=== PATIENT | female | born 1980 | race Caucasian/White ===

== ENCOUNTER 2020-01-19 14:47 | Outpatient (CLI) | payer OTHER, SELFPAY ==
--- NOTE | ~2020-01-19 | MM_ITS ---
EXAMINATION: MM screening barak BI w nasim HISTORY: Screening mammogram TECHNIQUE: Craniocaudal and mediolateral oblique 3-D tomosynthesis images were obtained and synthetic 2-D images were generated. CAD analysis was submitted and interpreted. COMPARISON: No prior mammogram is available for comparison at this institution. BREAST PARENCHYMAL COMPOSITION: There are scattered areas of fibroglandular density. FINDINGS: There is no evidence of suspicious mass, calcification, or architectural distortion to sugg est malignancy in either breast. There has been no suspicious interval change. IMPRESSION: 1. No mammographic evidence of malignancy. 2. Recommend routine screening mammography in one year. BI-RADS Category 1: Negative Reviewed, dictated and finalized at location A. UI DEVELOPER
== END 2020-01-19 14:48 | disposition home or self-care (01) ==
LOC: CHSIMG 14:50
PROVIDERS: PCP Nurse Practitioner Family; Visit Provider Nurse Practitioner Family
DX: Z12.31 Encounter for screening mammogram for malignant neoplasm of breast (principal)
CPT/HCPCS: 77063; 77067

== ENCOUNTER 2021-09-15 06:33 | Emergency (ER) | payer OTHER, SELFPAY ==
[2021-09-15 07:01] VITALS: BP 122/77; PULSE 93; RESP 18; TEMP 36.6; O2SAT 98
--- NOTE | 2021-09-15 07:11 | ED.EYEPROB ---
HPI - Eye Problem General Chief complaint: Eye Problems Stated complaint: eye infection Time Seen by Provider: 09/15/21 06:48 History of Present Illness HPI Narrative: 41-year-old female presents emergency room secondary irritation to both of her eyes for the last couple days. They are red and matted shut in the morning. She states she has had eye infections before. She states that she is got a history of having staph infection to her skin and she is having a flareup of those at this time. She thinks the 2 are associated. In the past she has been on antibiotics by mouth as well as to the eye and it clears up. Patient is also has not seen her regular physician in quite some time as she just relocated back to the area. She is possibly on Crestor 10 mg a day is requesting a refill for that as well. Related Data Allergies Allergy/AdvReac Type Severity Reaction Status Date / Time No Known Allergies Allergy Verified 09/15/21 07:08 Review of Systems Review of Systems: CONSTITUTIONAL: Denies fever, chills, or sweats. EYES: Denies visual changes. Has redness and drainage from both of her eyes ENT: Denies rhinorrhea, congestion, sore throat, or otalgia. CARDIOVASCULAR: Denies chest pain, palpitations, or edema. RESPIRATORY: Denies cough or dyspnea. GASTROINTESTINAL: Denies abdominal pain, nausea, vomiting, or diarrhea. GENITOURINARY: Denies dysuria or hematuria. SKIN: Diffuse lesions to both upper extremities consistent with staph infection MUSCULOSKELETAL: Denies back pain, joint pain, or myalgia. NEUROLOGIC: Denies headache, numbness, or weakness. PSYCHIATRIC: Denies anxiety or depression. PMFSH Past Medical History Medical History Hepatitis C Hyperlipidemia Overweight Surgical History Surgical History H/O knee surgery Social History Social History Smoking status: Never smoker Tobacco type: cigarettes Alcohol intake: never Substance use: former Substance use type: heroin Exam Narrative: APPEARANCE: Well appearing, no pain or distress, well-nourished. Head normocephalic and atraumatic. EYES: PERRLA/EOMI, both eyes are injected left greater than right with some discharge noted NOSE: Normal with no drainage EARS:TMS clear Anam Tanner, with good light reflex. THROAT: Pharynx clear, no exudate. NECK: Supple. No adenopathy, no masses. RESPIRATORY: Airway patent, respirations nonlabored. Clear to auscultation bilaterally, no rales, rhonchi, wheezing. CARDIOVASCULAR: Regular rate and rhythm without murmurs, rubs, or gallops. ABDOMINAL: Soft, nontender, nondistended, no hepatosplenomegaly Musculoskeletal: Moves all extremities. Strength/ROM intact, No edema, No calf tenderness. NEURO: Alert. Cranial nerves II through XII intact. Normal gait. Good coordination. Nonfocal examination. SKIN:: Warm, dry. Normal Color. Scattered lesions of the upper extremities appear to be consistent with a staph infection PSYCHIATRIC: Normal affect/mood, normal interaction Course Vital Signs Vital signs: Vital Signs Temperature 97.8 F 09/15/21 07:01 Pulse Rate 93 09/15/21 07:01 Respiratory Rate 18 09/15/21 07:01 Blood Pressure 122/77 09/15/21 07:01 Pulse Oximetry 98 09/15/21 07:01 Oxygen Delivery Room Air 09/15/21 07:01 Temperature 97.8 F 09/15/21 07:01 Pulse Rate 93 09/15/21 07:01 Respiratory Rate 18 09/15/21 07:01 Blood Pressure 122/77 09/15/21 07:01 Pulse Oximetry 98 09/15/21 07:01 Oxygen Delivery Room Air 09/15/21 07:01 MDM - Eye Problem MDM Narrative Medical decision making narrative: Presentation consistent with conjunctivitis as well as a skin infection. Patient was placed upon antibiotic ointment for the eyes as well as Keflex. Also given a refill for her Crestor 10 mg a day Discharge Plan Discharge Clinical
--- NOTE | 2021-09-15 07:14 | PC.NURSE ---
Report received from SHRUTHI Moreno to continue care.
== END 2021-09-15 07:21 | disposition home or self-care (01) ==
PROVIDERS: Emergency Provider Emergency Medicine
DX: H10.9 Unspecified conjunctivitis (principal); L03.114 Cellulitis of left upper limb; L03.113 Cellulitis of right upper limb; E78.5 Hyperlipidemia, unspecified; E66.3 Overweight; Z68.30 Body mass index [BMI] 30.0-30.9, adult; Z86.19 Personal history of other infectious and parasitic diseases
CPT/HCPCS: 99283

== ENCOUNTER 2021-11-01 23:23 | Emergency (ER) | payer OTHER, SELFPAY ==
[2021-11-01 23:28] VITALS: BP 117/84; PULSE 104; RESP 19; TEMP 36.7; O2SAT 100
--- NOTE | 2021-11-02 00:11 | ED.GENADULT ---
HPI - General Adult General Chief complaint: Skin/Abscess/Foreign Body Stated complaint: Possible Scabies Time Seen by Provider: 11/01/21 23:35 History of Present Illness HPI narrative: Patient 41-year-old female who presents the emergency department with chief complaint of possible scabies. Patient states that she stayed at a unknown hotel and started having some itching and has developed areas of what appear to be bites. Patient states that they are very itchy reported that they are not improved by anything or they worsened by anything. Related Data Allergies Allergy/AdvReac Type Severity Reaction Status Date / Time No Known Allergies Allergy Verified 11/01/21 23:32 Review of Systems Review of Systems: A 10 system review of systems was completed on the patient and is negative except for what is stated in the HPI. Nursing and ancillary documentation was reviewed. PMFSH Past Medical History Medical History Hepatitis C Hyperlipidemia Overweight Surgical History Surgical History H/O knee surgery Social History Social History Smoking status: Never smoker Tobacco type: cigarettes Alcohol intake: never Substance use: former Substance use type: heroin Exam Narrative: GENERAL: Well-appearing, well-nourished, and in no acute distress. HEAD: Normocephalic, atraumatic. EYES: PERRLA and EOMI. ENT: Nares clear, no rhinorrhea or epistaxis. Mucous membranes moist. NECK: Supple. CHEST: Clear to auscultation. No respiratory distress. HEART: Regular rate and rhythm. No murmur heard. Normal peripheral pulses. ABDOMEN: Soft, nontender, nondistended, normal active bowel sounds. EXTREMITIES: Normal range of motion. No edema. SKIN: Warm, dry, several small bite-like rash mckeon. NEURO: No focal deficits. Alert and oriented x3. PSYCH: Normal mood and affect. Course Course Emergency Course: Patient has multiple small what appear to be bites some of which have yet surrounding erythema. The patient will be treated as though she has scabies and will also be treated as though they have become secondarily infected. Vital Signs Vital signs: Vital Signs Temperature 36.7 C 11/01/21 23:28 Pulse Rate 104 H 11/01/21 23:28 Respiratory Rate 19 11/01/21 23:28 Blood Pressure 117/84 11/01/21 23:28 Pulse Oximetry 100 11/01/21 23:28 Oxygen Delivery Room Air 11/01/21 23:28 Temperature 36.7 C 11/01/21 23:28 Pulse Rate 104 H 11/01/21 23:28 Respiratory Rate 19 11/01/21 23:28 Blood Pressure 117/84 11/01/21 23:28 Pulse Oximetry 100 11/01/21 23:28 Oxygen Delivery Room Air 11/01/21 23:28 Medical Decision Making Vital Signs Vital Signs: Vital Signs Temperature 36.7 C 11/01/21 23:28 Pulse Rate 104 H 11/01/21 23:28 Respiratory Rate 19 11/01/21 23:28 Blood Pressure 117/84 11/01/21 23:28 Pulse Oximetry 100 11/01/21 23:28 Oxygen Delivery Room Air 11/01/21 23:28 Temperature 36.7 C 11/01/21 23:28 Pulse Rate 104 H 11/01/21 23:28 Respiratory Rate 19 11/01/21 23:28 Blood Pressure 117/84 11/01/21 23:28 Pulse Oximetry 100 11/01/21 23:28 Oxygen Delivery Room Air 11/01/21 23:28 Discharge Plan Discharge Clinical Impression: Scabies, Cellulitis Patient Disposition: Home, Self-Care Condition: Stable Instructions: Antibiotic Form, Cellulitis (ED), Scabies (ED) Prescriptions: New permethrin [Elimite] 5 % cream 1 applic topical Q14D Qty: 60 0RF Rx Instructions: apply second treatment 14 days after first treatment if live lice remain sulfamethoxazole-trimethoprim [Bactrim DS] 800-160 mg tablet 1 tablet PO Q12H Qty: 14 0RF No Action rosuvastatin [Crestor] 10 mg tablet 10 mg PO DAILY Qty: 90 0RF Follow-up/Referrals: PHYSICIAN,
== END 2021-11-02 00:42 | disposition home or self-care (01) ==
PROVIDERS: Emergency Provider Emergency Medicine
DX: B86 Scabies (principal); L03.311 Cellulitis of abdominal wall; E78.5 Hyperlipidemia, unspecified; Z86.19 Personal history of other infectious and parasitic diseases; E66.3 Overweight
CPT/HCPCS: 99283

== ENCOUNTER 2021-11-04 01:10 | Emergency (ER) | payer OTHER, SELFPAY ==
[2021-11-04 01:13] VITALS: BP 137/87; PULSE 99; RESP 20; TEMP 36.1; O2SAT 100
--- NOTE | 2021-11-04 02:31 | ED.SKABFB ---
HPI - Skin/Abscess/Foreign Bdy General Chief complaint: Skin/Abscess/Foreign Body Stated complaint: Scabies getting worse Time Seen by Provider: 11/04/21 01:32 Source: patient Mode of arrival: ambulatory Limitations: no limitations History of Present Illness HPI narrative: This is a 41 year old female that presents to the ER for itchy rash noted over the last couple of days. Reports she was seen and treated for scabies. She was also started on an antibiotic for possibly secondary infection. Denies fever. Related Data Allergies Allergy/AdvReac Type Severity Reaction Status Date / Time No Known Allergies Allergy Verified 11/04/21 01:34 Review of Systems Review of Systems: CONSTITUTIONAL: Denies fever SKIN: Reports rash and itching. All systems reviewed & are unremarkable except as noted in HPI and below PMFSH Past Medical History Medical History Hepatitis C Hyperlipidemia Overweight Surgical History Surgical History H/O knee surgery Social History Social History Smoking status: Never smoker Tobacco type: cigarettes Alcohol intake: never Substance use: former Substance use type: heroin Exam Narrative: GENERAL: Well-appearing, well-nourished, and in no acute distress. HEAD: Normocephalic, atraumatic. EYES: EOMI. EXTREMITIES: Normal range of motion. No edema. Bilateral arms with scabbing noted. No edema or fluctuance of the lesions to suggest abscess SKIN: Warm, dry, no rash. NEURO: No focal deficits. Alert and oriented x3. PSYCH: Normal mood and affect Course Vital Signs Vital signs: Vital Signs Temperature 97.0 F L 11/04/21 01:13 Pulse Rate 99 11/04/21 01:13 Respiratory Rate 20 11/04/21 01:13 Blood Pressure 137/87 11/04/21 01:13 Pulse Oximetry 100 11/04/21 01:13 Oxygen Delivery Room Air 11/04/21 01:13 Temperature 97.0 F L 11/04/21 01:13 Pulse Rate 99 11/04/21 01:13 Respiratory Rate 20 11/04/21 01:13 Blood Pressure 137/87 11/04/21 01:13 Pulse Oximetry 100 11/04/21 01:13 Oxygen Delivery Room Air 11/04/21 01:13 MDM - Skin/Abscess/Foreign Bdy MDM Narrative Medical decision making narrative: Patient presents to the emergency department for an itchy rash. Has been treated for scabies. Also placed on an oral antibiotic for possible secondary infection. Patient instructed to finish her medications as prescribed. Also instructed on use of antihistamines for itching. She is to follow-up with primary care doctor. She was given warnings to return to the ER Critical Care Time Critical Care Time Critical Care Time: No Discharge Plan Discharge Clinical Impression: Rash and nonspecific skin eruption Patient Disposition: Home, Self-Care Condition: Stable Instructions: Antibiotic Form, Scabies (ED), Acute Rash (ED) Additional Instructions: Return to the emergency department if you experience fever, redness and swelling of your wounds, abnormal drainage from your wounds, or any other symptoms that are concerning to you Apply second round of treatment (Permethrin) in 14 days. Take a Pepcid and Claritin daily. Benadryl as needed for severe itching. Finish oral antibiotic as prescribed. Keep the areas clean and dry with mild soap and water and apply antibiotic ointment as needed Follow-up with your primary care doctor Prescriptions: No Action permethrin [Elimite] 5 % cream 1 applic topical Q14D Qty: 60 0RF Rx Instructions: apply second treatment 14 days after first treatment if live lice remain sulfamethoxazole-trimethoprim [Bactrim DS] 800-160 mg tablet 1 tablet PO Q12H Qty: 14 0RF rosuvastatin [Crestor] 10 mg tablet 10 mg PO DAILY Qty: 90 0RF Follow-up/Referrals: Kirill Carrasco MD [Physician] - 1 Week PHYSICIAN,[employer] REPRESENTATIVE [Pr
[2021-11-04 02:46] VITALS: BP 124/84; PULSE 98; RESP 12; TEMP 36.4; O2SAT 100
== END 2021-11-04 02:57 | disposition home or self-care (01) ==
PROVIDERS: Emergency Provider Emergency Medicine
DX: R21 Rash and other nonspecific skin eruption (principal); E78.5 Hyperlipidemia, unspecified; E66.3 Overweight; Z86.19 Personal history of other infectious and parasitic diseases
CPT/HCPCS: 99281

== ENCOUNTER 2021-11-23 20:25 | Emergency (ER) | payer OTHER, SELFPAY ==
[2021-11-23 20:32] VITALS: BP 151/95; PULSE 99; RESP 20; TEMP 37.2; O2SAT 97
--- NOTE | 2021-11-23 21:01 | ED.SKABFB ---
HPI - Skin/Abscess/Foreign Bdy General Chief complaint: Skin/Abscess/Foreign Body Stated complaint: SKIN PROBLEM Time Seen by Provider: 11/23/21 20:29 History of Present Illness HPI narrative: Patient is a 41-year-old female here for evaluation of a diffuse pruritic rash to her bilateral upper extremities most notable in the anterior webs of her fingers. She has been seen here twice at our facility and was given prescription for suspected scabies and overlying cellulitis. Patient states that she lost the antibiotic prescription upon onset and did not take it. She has been applying the permethrin cream but lost this for her second application. She states she has a history of staph infections and this feels similar. She has also been picking at the lesions and they have gotten worse since onset. No new medications, soaps or detergents. Rash is not painful. No fevers or chills. Related Data Allergies Allergy/AdvReac Type Severity Reaction Status Date / Time No Known Allergies Allergy Verified 11/23/21 20:34 Review of Systems Review of Systems: Gen: Denies fevers or chills Eyes: Denies eye pain or visual change ENT: Denies congestion Respiratory: Denies shortness of breath or cough CV: Denies chest pain or palpitations GI: Denies abdominal pain nausea, emesis or diarrhea : denies burning, urgency, frequency or hematuria Musculoskeletal: Denies back pain or muscle pain Neuro: Denies numbness, tingling, weakness or focal weakness Skin: Reports pruritic rash Except as documented, all other systems reviewed and negative PMFSH Past Medical History Medical History Hepatitis C Hyperlipidemia Overweight Surgical History Surgical History H/O knee surgery Social History Social History Smoking status: Never smoker Tobacco type: cigarettes Alcohol intake: never Substance use: former Substance use type: heroin Exam Narrative: APPEARANCE: Well appearing, no pain in distress, well-nourished. Head: Normocephalic and atraumatic. EYES: PERRLA/EOMI, conjunctivae clear NOSE: No nasal drainage EARS: External ear normal in appearance THROAT: Oropharynx is clear. Mucous membranes are moist. NECK: Supple. No adenopathy, no masses. RESPIRATORY: Airway patent, respirations nonlabored. Clear to auscultation bilaterally, no rales, rhonchi, wheezing. CARDIOVASCULAR: Regular rate and rhythm without murmurs, rubs, or gallops. ABDOMINAL: Normoactive bowel sounds. Soft, nontender, nondistended. No rebound tenderness or guarding. MUSCULOSKELETAL: Extremities are warm and well-perfused. Moves all extremities well. No edema. NEURO: Normal speech. No focal neurologic deficits. SKIN: Patient has scattered numerous scabs to upper extremities, several papules between the webs of her fingers in addition to linear burrows. PSYCHIATRIC: Normal affect/mood.. Course Vital Signs Vital signs: Vital Signs Temperature 99 F 11/23/21 20:32 Pulse Rate 99 11/23/21 20:32 Respiratory Rate 20 11/23/21 20:32 Blood Pressure 151/95 H 11/23/21 20:32 Pulse Oximetry 97 11/23/21 20:32 Temperature 99 F 11/23/21 20:32 Pulse Rate 99 11/23/21 20:32 Respiratory Rate 20 11/23/21 20:32 Blood Pressure 151/95 H 11/23/21 20:32 Pulse Oximetry 97 11/23/21 20:32 MDM - Skin/Abscess/Foreign Bdy MDM Narrative Medical decision making narrative: 41-year-old female here for evaluation of a rash to her bilateral upper extremities that is pruritic in nature. She was given a prescription for treatment of suspected scabies with overlying cellulitis, permethrin cream once but did not take antibiotics and lost the prescription for both. On exam she has evidence of surrounding cellulitis to the papules and evidence of excoriation. She will be treated with
== END 2021-11-23 21:08 | disposition home or self-care (01) ==
PROVIDERS: Emergency Provider Emergency Medicine
DX: R21 Rash and other nonspecific skin eruption (principal); L03.114 Cellulitis of left upper limb; L03.113 Cellulitis of right upper limb; E78.5 Hyperlipidemia, unspecified; E66.3 Overweight; Z68.34 Body mass index [BMI] 34.0-34.9, adult; Z86.19 Personal history of other infectious and parasitic diseases
CPT/HCPCS: 99283

== ENCOUNTER 2021-12-08 04:16 | Emergency (ER) | payer OTHER, SELFPAY ==
[2021-12-08 04:24] VITALS: BP 145/90; PULSE 123; RESP 22; TEMP 37; O2SAT 100
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
== END 2021-12-08 05:43 | disposition home or self-care (01) ==
PROVIDERS: Emergency Provider Emergency Medicine
DX: F42.4 Excoriation (skin-picking) disorder (principal); E78.5 Hyperlipidemia, unspecified; E66.3 Overweight; Z68.34 Body mass index [BMI] 34.0-34.9, adult; Z86.19 Personal history of other infectious and parasitic diseases
CPT/HCPCS: 99281

== ENCOUNTER 2022-09-24 15:46 | Emergency (ER) | payer OTHER, SELFPAY ==
[2022-09-24 15:55] VITALS: BP 151/109; PULSE 95; RESP 16; TEMP 37.1; O2SAT 98
--- NOTE | 2022-09-24 16:00 | ED.EYEPROB ---
HPI - Eye Problem General Chief complaint: Eye Problems Stated complaint: left eye irritation Time Seen by Provider: 09/24/22 16:00 Source: patient Mode of arrival: ambulatory Limitations: no limitations History of Present Illness HPI Narrative: Celeste is a 42-year-old female patient presenting to the clinic with complaints of left eye irritation. She reports she took out a contact from her left eye last night and developed irritation and watering. She is concerned that she may have scratched her eye. Is having blurry vision with watery eye with moderate pain Related Data Allergies Allergy/AdvReac Type Severity Reaction Status Date / Time No Known Allergies Allergy Verified 09/24/22 16:22 Review of Systems Review of Systems: Pertinent positives per HPI. Patient denies any fever, chills, rash, headache, dizziness, cough, runny nose, sore throat, shortness of breath, chest pain, palpitations, nausea, vomiting, diarrhea, constipation, abdominal pain, or any urinary issues. PMFSH Past Medical History Medical History Hepatitis C Hyperlipidemia Overweight Surgical History Surgical History H/O knee surgery Social History Social History Smoking status: Never smoker Tobacco type: cigarettes Alcohol intake: never Substance use: former Substance use type: heroin Living arrangements: alone Occupation/Education: occupation Comments At the time of my signature, I reviewed and agree with the nursing past medical, surgical, social, and family history. There is no relevant family history pertinent to the patient complaint. Exam Narrative: General: Well-developed, well nourished, in no apparent distress Head: Normocephalic, atraumatic Eyes: Pupils equally round and reactive to light bilaterally, EOM intact, right sclera and conjunctive clear, left sclera and conjunctiva injected with watery discharge, left lids mildly swollen, right lids normal, Wood's lamp exam performed and shows no sign of corneal abrasion or foreign body Ears: TMs intact and clear, ear canals clear, no drainage, grossly hearing normal. Nose: Nares patent, no discharge, no inflammation, no sinus tenderness. Mouth: Oropharynx without lesions or masses, good dentition, MMM. Neck: Supple, trachea midline, no enlargement of anterior or posterior cervical nodes, no thyroid masses or goiter palpable. Cardio: Regular rate and rhythm, s1 and s2 normal, no murmur appreciated. Resp: Clear to auscultation bilaterally anteriorly and posteriorly, no rhonchi, rales, wheezing or rubs Course Course Emergency Course: Portions of this record may have been created with voice recognition software. Level of Care: Express Care Visit Vital Signs Vital signs: Vital Signs Temperature 37.1 C 09/24/22 15:55 Pulse Rate 95 09/24/22 15:55 Respiratory Rate 16 09/24/22 15:55 Blood Pressure 151/109 H 09/24/22 15:55 Pulse Oximetry 98 09/24/22 15:55 Oxygen Delivery Room Air 09/24/22 15:55 Temperature 37.1 C 09/24/22 15:55 Pulse Rate 95 09/24/22 15:55 Respiratory Rate 16 09/24/22 15:55 Blood Pressure 151/109 H 09/24/22 15:55 Pulse Oximetry 98 09/24/22 15:55 Oxygen Delivery Room Air 09/24/22 15:55 Vital signs reviewed Procedures Other Procedure Procedure 1: Other Procedure: Wood's lamp exam performed in the clinic today. Risk and benefits were discussed and patient agrees to procedure. 2 drops of tetracaine topical anesthetic was instilled with good anesthesia. Fluorescein stain of the left eye was performed without uptake of dye. No epithelial defect was noted. NO FB, ulcer or dendritic lesions. Upper lid was everted and no FB or lesions were noted. No Patricia sign. Normal saline irrigation eye solution was performe
== END 2022-09-24 16:35 | disposition home or self-care (01) ==
PROVIDERS: Emergency Provider Nurse Practitioner Family; PCP Emergency Medicine
DX: H57.12 Ocular pain, left eye (principal); E78.5 Hyperlipidemia, unspecified
CPT/HCPCS: 99213; A9270; G0463

== ENCOUNTER 2023-09-07 03:15 | Emergency (ER) | payer OTHER, SELFPAY ==
[2023-09-07 03:19] VITALS: BP 117/100; PULSE 100; RESP 20; TEMP 36.8; O2SAT 98
--- NOTE | 2023-09-07 03:30 | ED.GENADULT ---
HPI - General Adult General Chief complaint: Skin/Abscess/Foreign Body Stated complaint: staph outbreak on my face Time Seen by Provider: 09/07/23 03:23 History of Present Illness HPI narrative: Patient is a 43-year-old female who presents emergency department with chief complaint of skin infection to face. The patient reports yesterday she started having breakout on her face reports that history of skin infections before in the past. The patient reports that it is irritated reports no shortness of breath denies angioedema Related Data Allergies Allergy/AdvReac Type Severity Reaction Status Date / Time No Known Allergies Allergy Verified 09/07/23 03:21 Review of Systems Review of Systems: A 10 system review of systems was completed on the patient and is negative except for what is stated in the HPI. Nursing and ancillary documentation was reviewed. PMFSH Past Medical History Medical History Hepatitis C Hyperlipidemia Overweight Surgical History Surgical History H/O knee surgery Social History Social History Smoking status: Never smoker Tobacco type: cigarettes Alcohol intake: never Substance use: former Substance use type: heroin Living arrangements: alone Occupation/Education: occupation Exam Narrative: GENERAL: Well-appearing, well-nourished, and in no acute distress. HEAD: Normocephalic, atraumatic. EYES: PERRLA and EOMI. ENT: Nares clear, no rhinorrhea or epistaxis. Mucous membranes moist. NECK: Supple. CHEST: Clear to auscultation. No respiratory distress. HEART: Regular rate and rhythm. No murmur heard. Normal peripheral pulses. ABDOMEN: Soft, nontender, nondistended, normal active bowel sounds. EXTREMITIES: Normal range of motion. No edema. SKIN: Warm, dry, areas of erythema present on the face no fluctuance no crepitance no necrotic tissue. NEURO: No focal deficits. Alert and oriented x3. PSYCH: Normal mood and affect. Course Vital Signs Vital signs: Vital Signs Temperature 36.8 C 09/07/23 03:19 Pulse Rate 100 09/07/23 03:19 Respiratory Rate 20 09/07/23 03:19 Blood Pressure 117/100 H 09/07/23 03:19 Pulse Oximetry 98 09/07/23 03:19 Oxygen Delivery Room Air 09/07/23 03:19 Temperature 36.8 C 09/07/23 03:19 Pulse Rate 100 09/07/23 03:19 Respiratory Rate 20 09/07/23 03:19 Blood Pressure 117/100 H 09/07/23 03:19 Pulse Oximetry 98 09/07/23 03:19 Oxygen Delivery Room Air 09/07/23 03:19 Medical Decision Making MDM Narrative Medical decision making narrative: Differential diagnosis includes cellulitis, localized skin infection Patient was started on doxycycline discharged home Vital Signs Vital Signs: Vital Signs Temperature 36.8 C 09/07/23 03:19 Pulse Rate 100 09/07/23 03:19 Respiratory Rate 20 09/07/23 03:19 Blood Pressure 117/100 H 09/07/23 03:19 Pulse Oximetry 98 09/07/23 03:19 Oxygen Delivery Room Air 09/07/23 03:19 Temperature 36.8 C 09/07/23 03:19 Pulse Rate 100 09/07/23 03:19 Respiratory Rate 20 09/07/23 03:19 Blood Pressure 117/100 H 09/07/23 03:19 Pulse Oximetry 98 09/07/23 03:19 Oxygen Delivery Room Air 09/07/23 03:19 Discharge Plan Discharge Clinical Impression: Cellulitis Patient Disposition: Home, Self-Care Condition: Stable Instructions: Antibiotic Form, Cellulitis (ED) Prescriptions: New doxycycline hyclate 100 mg tablet 100 mg PO BID Qty: 14 0RF No Action tobramycin-dexamethasone [TobraDex] 0.3-0.1 % drops,suspension 1 drp LEFT EYE QID 7 Days Qty: 10 0RF rosuvastatin [Crestor] 10 mg tablet 10 mg PO DAILY Qty: 90 0RF Follow-up/Referrals: Eduardo Quigley MD [Primary Care Provider] - Time of Disposition: 03:34
[2023-09-07] MEDS: DOXYCYCLINE HYCLATE 100 MG TABLET PO (03:39)
== END 2023-09-07 03:41 | disposition home or self-care (01) ==
LOC: ANHED 03:36
PROVIDERS: Emergency Provider Emergency Medicine
DX: L03.211 Cellulitis of face (principal); E78.5 Hyperlipidemia, unspecified; E66.3 Overweight; Z68.31 Body mass index [BMI] 31.0-31.9, adult; Z86.19 Personal history of other infectious and parasitic diseases
CPT/HCPCS: 99283; A9270

== ENCOUNTER 2023-09-27 22:53 | Emergency (ER) | payer OTHER, SELFPAY ==
[2023-09-27 22:59] VITALS: BP 154/100; PULSE 102; RESP 18; TEMP 36.8; O2SAT 97
--- NOTE | 2023-09-28 01:49 | ED.GENADULT ---
HPI - General Adult General Chief complaint: Unspecified Stated complaint: rash to face/back pain Time Seen by Provider: 09/28/23 00:58 History of Present Illness HPI narrative: This is a 43-year-old female with history of polysubstance use disorder and skin picking presenting for a diffuse rash. She thinks that she has scabies. She is requesting oral pills since taking the cream that did not help. Patient has been seen in our emergency department for this in the past. No other complaints. Related Data Allergies Allergy/AdvReac Type Severity Reaction Status Date / Time No Known Allergies Allergy Verified 09/07/23 03:21 [facility] Past Medical History Medical History Hepatitis C Hyperlipidemia Overweight Surgical History Surgical History H/O knee surgery Social History Social History Smoking status: Never smoker Tobacco type: cigarettes Alcohol intake: never Substance use: former Substance use type: heroin Living arrangements: alone Occupation/Education: occupation Exam Narrative: APPEARANCE: Patient speaks quickly, she cannot sit still in her chair, she is picking at her skin while I am interviewing her Head: atraumatic. EYES: EOMI, NOSE: Atraumatic NECK: Trachea midline RESPIRATORY: No increased rate of breathing CARDIOVASCULAR: RRR, ABDOMINAL: Non-distended MUSCULOSKELETAl: No obvious deformities NEURO: Alert. Moving 4/4 extremities SKIN:: Multiple areas in different stages of healing from skin picking on her arms and face PSYCHIATRIC: Normal affect Course Vital Signs Vital signs: Vital Signs Temperature 98.3 F 09/27/23 22:59 Pulse Rate 102 H 09/27/23 22:59 Respiratory Rate 18 09/27/23 22:59 Blood Pressure 154/100 H 09/27/23 22:59 Pulse Oximetry 97 09/27/23 22:59 Oxygen Delivery Room Air 09/27/23 22:59 Temperature 98.3 F 09/27/23 22:59 Pulse Rate 102 H 09/27/23 22:59 Respiratory Rate 18 09/27/23 22:59 Blood Pressure 154/100 H 09/27/23 22:59 Pulse Oximetry 97 09/27/23 22:59 Oxygen Delivery Room Air 09/27/23 22:59 Medical Decision Making MDM Narrative Medical decision making narrative: -Course: 43-year-old female presenting ED convinced that she has scabies. I think this far more likely to be a result of drug use. Patient does not think it is related to amphetamines. Patient will be provided prescriptions for permethrin cream and ivermectin. Discharged. Encouraged to stop using drugs. -DDX includes but is not limited to: Skin picking related to drug use, scabies, cellulitis -Co-morbidities complicating care: Drug use -External Chart Review: Review of ER visits for identical presentation. -Shared decision making / Disposition: Discharged -RX ivermectin, per mother in Vital Signs Vital Signs: Vital Signs Temperature 98.3 F 09/27/23 22:59 Pulse Rate 102 H 09/27/23 22:59 Respiratory Rate 18 09/27/23 22:59 Blood Pressure 154/100 H 09/27/23 22:59 Pulse Oximetry 97 09/27/23 22:59 Oxygen Delivery Room Air 09/27/23 22:59 Temperature 98.3 F 09/27/23 22:59 Pulse Rate 102 H 09/27/23 22:59 Respiratory Rate 18 09/27/23 22:59 Blood Pressure 154/100 H 09/27/23 22:59 Pulse Oximetry 97 09/27/23 22:59 Oxygen Delivery Room Air 09/27/23 22:59 Discharge Plan Discharge Clinical Impression: Rash, Drug abuse Patient Disposition: Home, Self-Care Condition: Stable Instructions: Antibiotic Form, Scabies (ED) Additional Instructions: You can attempt to use permethrin and ivermectin to treat your rash. I would refrain from using drugs in the future as this looks like skin picking. Please follow-up with primary care physician. Please return if you develop signs of infection Prescriptions: New permethrin 5 % crea
== END 2023-09-28 02:10 | disposition home or self-care (01) ==
PROVIDERS: Emergency Provider Emergency Medicine
DX: R21 Rash and other nonspecific skin eruption (principal); F19.10 Other psychoactive substance abuse, uncomplicated; E78.5 Hyperlipidemia, unspecified; Z86.19 Personal history of other infectious and parasitic diseases; E66.3 Overweight; Z68.32 Body mass index [BMI] 32.0-32.9, adult
CPT/HCPCS: 99283

== ENCOUNTER 2024-08-09 03:48 | Emergency (ER) | payer OTHER, SELFPAY ==
--- OUTSIDE RECORDS SUMMARY | 2024-08-09 03:51 | XMS_ITS | Encounter Summary ---
Author Organization [facility] Address [address] [place] [address] Phone Care Team Providers Care Optical Goods Worker Name Role Phone Oliver Roxann Shi APRN, F[employer]ERGL[employer] PIPE COVERING SUPERVISOR Primary Care Provider Vicky Jacobs APRN, [employer]ER[employer] PIPE COVERING SUPERVISOR Unavailable Reason for Visit * Reason Comments Medication Refill Encounter Details Date Type Department Care Team (Late st Contact Info) Description 05/11/2024 Refill [facility] - Gastroenterology - [place] [address] [place] [phone] Vicky Jacobs APRN, F[employer]ERGL[employer] PIPE COVERING SUPERVISOR [address] [place] [address] Medication Refill Social History Tobacco Use Types Packs/Day Years Used Date Smoking Tobacco: Former Cigarettes Alcohol Use Standard Drinks/Week Comments Not Currently 0 (1 standard drink = 0.6 oz pur e alcohol) Comments No Sex and Gender Information Value Date Recorded Sex Assigned at Not on file Legal Sex Female 7:44 PM CDT Gender Identity Not on file Sexual Orientation Not on file documented as of this encounter Miscellaneous Notes * Telephone Encounter - Salome Hull RN - 05/12/2024 8:54 AM TAPE MAKING MACHINE OPERATOR Mavyret order placed on 01/29/2024. Per chart review, telephone encounter for 03/05/2024, patient started Mavyret on 03/26/2024. Per chart review, Mavyret was dispensed on 03/23/2024 and 04/26/2024 by [facility]. Spoke with patient, she has a few boxes left. She has had the flu and has not been able to get in to do the HFP. Advised patient to call to make an appt when she is finished with treatment. She reported she is feeling better and will get lab done soon. Mavyret order pended, ok to refuse med refill?? MAKING MACHINE OPERATOR documented in this encounter Plan of Treatment Not on file documented as of this encounter Visit Diagnoses Diagnosis Hep C w/o coma, chronic (HCC) Chronic hepatitis C without mention of hepatic coma documented in this encounter Care Teams [employer] Goods Worker Relationship Specialty Start Date End Date Roxann Boyd APRN, F[employer]ER[employer] PIPE COVERING SUPERVISOR [address] [place] [address] PCP - General Advanced Practice Nurse 12/15/23 Vicky Jacobs APRN, F[employer]ERGL[employer] PIPE COVERING SUPERVISOR [address] [place] [address] Nurse Practitioner Advanced Practice Nurse 01/27/24 documented as of this encounter
--- OUTSIDE RECORDS SUMMARY | 2024-08-09 03:51 | XMS_ITS | Data Portability ---
Author Organization [facility] Address [address] [place] [address] Care Team Providers Care Vascular Specialists Name Role Phone VANGIE, ROXANN Primary Care Provider Assessment Encounter Date Assessment Date Assessment LastModified by Organization Details LastModified Time 12/02/2023 12/02/2023 Ms. Gregory is a 43-year-old female presenting to [facility] care. She last saw a primary care provider in 2019 after being released from nursing home, where she was incarcerated for five years. 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 She has a history of hepatitis C diagnosed in 2013 but has not received any treatment for it. The patient also mentions having high cholesterol and bilateral carpal tunnel syndrome affecting both hands. Additionally, she has a history of anxiety and depression and currently vapes. Not available 12/09/2023 11:56:33 01/01/2024 01/01/2024 Ms. Gregory presents for a follow-up appointment, reporting generalized swelling since starting atorvastatin. She describes feeling swollen all over, with no specific areas of increased discomfort. She denies any recent changes in diet, activity, or medication, except for the addition of atorvastatin. No other symptoms such as shortness of breath, chest pain, or rash are reported. Not available 01/01/2024 15:06:25 07/12/2024 07/12/2024 Ms. Gregory presents for ER follow-up after visiting [facility] on 07/10/24 for two days of vomiting. Symptoms have resolved, and patient feels much better today. Not available 07/13/2024 08:36:13 Plan of Treatment Reminders Order Date Submit Date Provider Last Modified By Organization Details Last Modified Time Details Appointments ANY 15 2024 01:45P M ROXANN VENCES, [employer] Not available Not available Not available Lab cytol ogy repor t, thin prep, smear or scrap ing, cervi clifford or vagin al 2024 025 MIC[facility], [address], [address], [place], [address], 06/26/2024 06:49:02 influ honey virus A + B + SARS- CoV-2 (COVI D19) Ag panel , rapid IA, upper respi rator y speci men 2024 025 MICHELLE In-Office Order, Internal Use Only DO Not Attach Compendium DO Not Attach Compendium, Do Not Delete/merge, [id number] 05/11/2024 16:51:46 rapid strep group A, throa t 2024 025 MICHELLE In-Office Order, Internal Use Only DO Not Attach Compendium DO Not Attach Compendium, Do Not Delete/merge, [id number] 05/11/2024 16:52:05 HbA1c (hemo globi n A1c), blood 2023 024 [facility], [address], [address], [place], [address], 12/17/2023 08:28:31 lipid panel , serum 2023 024 [facility], [address], [address], [place], [address], 12/17/2023 03:08:35 CMP, serum or plasm a 2023 024 [facility], [address], [address], [place], [address], 12/17/2023 03:08:37 CBC w/ auto diff 2023 024 [facility], [address], [place], [address], 12/17/2023 03:08:38 vitam in D, 25-hy droxy , total , serum 2023 024 [facility], [address] [facility] [address], [address], [place], [address], 12/17/2023 08:28:[address] refer ral 2023 024 [facility] [place], [address] [facility], [address], [place], [address], 01/22/2024 09:05:48 Procedures None recor ded. Surgeries None recor ded. Imaging elect romyo gram + nerve condu ction study 2023 024 [email or web address] Scheduling, [address] [facility] , [place], [address], 05/04/2024 15:16:51 Medication Orders valac yclov ir 1 gram table t 2024 025 [id number], [address] [place] [address], [id number], 05/07/2024 12:15:04 Lasix 20 mg table t 2023 024 [facility] #[id number], [address] [place] [address], [id number], 02/10/2024 10:34:02 potas sium chlor maria teresa ER 10 mEq table t,ext ended relea se 2023 024 [facility] [place] [facility] #[id number], [address] [place] [address], [id number], 02/10/2024 10:34:01 ezeti mibe 10 mg table t 2023 [facility] [place] [facility] #[id number], [address] [facility], [place], [place], [id number], 01/01/2024 14:43:44 dulox etine 20 mg capsu le,de layed relea se 2023 [id number], [address] [facility], [place], [place], [phone], 12/02/2023 14:36:53 Patient TargetsNo targets recorded. Patient Instructions Encounter Date Encounter Id Patient Instructions Last Modified By Organization Details Last Modified Time 12/02/2023 [id number] A healthy lifestyle: care instructions Not available 12/02/2023 14:47:58 - Always present to ER or Urgent Care with any progression of/alarming symptoms, significant changes in symptoms or any concerning or urgent matters Not available 12/02/2023 14:18:00 01/01/2024 [id number] - Always present to ER or Urgent Care with any progression of/alarming symptoms, significant changes in symptoms or any concerning or urgent matters Not available 01/01/2024 15:04:08 05/07/2024 [id number] Plan of care has been discussed with patient including expected therapeutic benefits and potential side effects of prescribed medication and treatments. Patient verbalizes understanding and is in agreement with the plan of care. Patient was instructed to keep all scheduled appointments and contact the clinic for any additional problems. Not available 05/07/2024 14:35:49 06/21/2024 [id number] A healthy lifestyle: care instructions [email or web address] Not available 06/21/2024 13:01:21 You had your pap smear completed today. You should have a well woman exam each year. If your pap smear comes back normal and does not show any HPV ( human papilloma virus), you will not need another pap smear for 5 years. Do NOT douche as it disturbs the natural balance of bacteria in the vagina and can cause infection. Avoid scented soaps or lotions. Use a basic unscented soap for only the outer skin around your vagina. Wear cotton underwear, avoid thongs, avoid spandex, leggings and wear panty liners daily. You can try probiotics. Use a condom with EVERY sexual encounter to minimize your risk for sexually transmitted infection and unplanned . [email or web address] Not available 06/21/2024 13:01:20 07/12/2024 [id number] - Always present to ER or Urgent Care with any progression of/alarming symptoms, significant changes in symptoms or any concerning or urgent matters Not available 07/12/2024 15:06:32 Reason for Referral Impregnation Operator Referral for Ch ronic hepatitis C Referring Physician: Roxann Vences, Family Medicine, Encounter Date: 12/02/2023 Results Created Date Observation Date Name Description Value Unit Range Abnormal Flag Note LastModifiedBy Organization Detail LastModifiedTime 12/16/1912/17/2023 LIPID PANEL cholesterol, total 305 mg/dL 100-19 9 above high normal Not Available [facility] Department [address] [place], [address], 12/17/2023 03:08:35 12/16/1912/17/2023 LIPID PANEL triglyceride s 161 mg/dL 0-149 above high normal Not Available [facility] Department [address] [place], [address], 12/17/2023 03:08:35 12/16/1912/17/2023 LIPID PANEL HDL cholesterol 59 mg/dL 40-999 Not Available [facility] Department [address] [place], [address], 12/17/2023 03:08:35 12/16/1912/17/2023 LIPID PANEL VLDL cholesterol clifford 32 mg/dL 5-40 Not Available [facility] Department [address] [place], [address], 12/17/2023 03:08:35 12/16/1912/17/2023 LIPID PANEL LDL chol calc (nih) 235 mg/dL 0-99 above high normal Not Available [facility] Department [address] [place] [address], [address], 12/17/2023 03:08:35 12/16/19 24 12/17/2023 COMP. METAB OLIC PANEL (14) glucose 67 mg/dL 70-99 below low normal Not Available [facility] Department [address] [place] [address], [address], 12/17/2023 03:08:36 12/16/19 24 12/17/2023 COMP. METAB OLIC PANEL (14) BUN 12 mg/dL 6-24 Not Available [facility] Department [address] [place] [address], [address], 12/17/2023 03:08:36 12/16/19 24 12/17/2023 COMP. METAB OLIC PANEL (14) creatinine 0.72 mg/dL 0.76-1 .27 below low normal Not Available [facility] Department [address] [place] [address], [address], 12/17/2023 03:08:36 12/16/1912/17/2023 COMP. METAB OLIC PANEL (14) eGFR 106 >=60 Units for eGFR value s are mL/mi n/1.7 3 The eGFR Calcu latio n has not been valid ated for patie nts under the age of 18. If test resul ts are displ ayed for a patie nt under the age of 18, disre itz that value . Not Available [facility] Department [address] [place], [address], 12/17/2023 03:08:36 12/16/19 24 12/17/2023 COMP. METAB OLIC PANEL (14) BUN/creatini ne ratio 17 9-23 Not Available [facility] Department [address] [place] [address], [address], 12/17/2023 03:08:36 12/16/19 24 12/17/2023 COMP. METAB OLIC PANEL (14) sodium 139 mmol/ L 134-14 4 Not Available [facility] Department [address] [place], [address], 12/17/2023 03:08:36 12/16/1912/17/2023 COMP. METAB OLIC PANEL (14) potassium 4.4 mmol/ L 3.5-5. 2 Not Available [facility] Department [address] [place], [address], 12/17/2023 03:08:36 12/16/19 24 12/17/2023 COMP. METAB OLIC PANEL (14) chloride 99 mmol/ L 96-106 Not Available [facility] Department [address] [place] [address], [address], 12/17/2023 03:08:36 12/16/19 24 12/17/2023 COMP. METAB OLIC PANEL (14) carbon dioxide, total 29 mmol/ L 20-29 Not Available [facility] Department [address] [place] [address], [address], 12/17/2023 03:08:36 12/16/1912/17/2023 COMP. METAB OLIC PANEL (14) calcium 9.3 mg/dL 8.7-10 .2 Not Available [facility] Department [address] [place] [address], [address], 12/17/2023 03:08:36 12/16/1912/17/2023 COMP. METAB OLIC PANEL (14) protein, total 7.6 g/dL 6.0-8. 5 Not Available [facility] Department [address] [place], [address], 12/17/2023 03:08:36 12/16/19 24 12/17/2023 COMP. METAB OLIC PANEL (14) albumin 4.2 g/dL 3.9-4. 9 Not Available [facility] Department [address] [place] [address], [address], 12/17/2023 03:08:36 12/16/19 24 12/17/2023 COMP. METAB OLIC PANEL (14) globulin, total 3.4 g/dL 1.5-4. 5 Not Available [facility] Department [address] [place], [address], 12/17/2023 03:08:36 12/16/19 24 12/17/2023 COMP. METAB OLIC PANEL (14) A/G ratio 1.0 1.2-2. 2 below low normal Not Available [facility] Department [address] [place], [address], 12/17/2023 03:08:36 12/16/1912/17/2023 COMP. METAB OLIC PANEL (14) bilirubin, total 0.2 mg/dL 0.0-1. 2 Not Available [facility] Department [address] [place], [address], 12/17/2023 03:08:36 12/16/19 24 12/17/2023 COMP. METAB OLIC PANEL (14) alkaline phosphatase 104 IU/L 44-121 Not Available [facility] Department [address] [place], [address], 12/17/2023 03:08:36 12/16/19 24 12/17/2023 COMP. METAB OLIC PANEL (14) AST (SGOT) 62 IU/L 0-40 above high normal Not Available [facility] Department [address] [place], [address], 12/17/2023 03:08:36 12/16/19 24 12/17/2023 COMP. METAB OLIC PANEL (14) ALT (SGPT) 62 IU/L 0-32 above high normal Not Available [facility] Department [address] [place], [address], 12/17/2023 03:08:36 12/16/19 24 12/17/2023 CBC WITH DIFFE RENTI AL/PL ATELE T WBC 4.7 x10e3 /uL 3.4-10 .8 Not Available [facility] Department [address] [place], [address], 12/17/2023 03:08:38 12/16/1912/17/2023 CBC WITH DIFFE RENTI AL/PL ATELE T RBC 3.99 x10e6 /uL 3.77-5 .28 Not Available [facility] Department [address] [place], [address], 12/17/2023 03:08:38 12/16/1912/17/2023 CBC WITH DIFFE RENTI AL/PL ATELE T hemoglobin 12.7 g/dL 11.1-1 5.9 Not Available [facility] Department [address] [place], [address], 12/17/2023 03:08:38 12/16/1912/17/2023 CBC WITH DIFFE RENTI AL/PL ATELE T hematocrit 38.5 % 34.0-4 6.6 Not Available [facility] Department [address] [place], [address], 12/17/2023 03:08:38 12/16/1912/17/2023 CBC WITH DIFFE RENTI AL/PL ATELE T MCV 97 fL 79-97 Not Available [facility] Department [address] [place], [address], 12/17/2023 03:08:38 12/16/1912/17/2023 CBC WITH DIFFE RENTI AL/PL ATELE T MCH 31.8 pg 26.6-3 3.0 Not Available [facility] Department [address] [place], [address], 12/17/2023 03:08:38 12/16/1912/17/2023 CBC WITH DIFFE RENTI AL/PL ATELE T MCHC 33.0 g/dL 31.5-3 5.7 Not Available [facility] Department [address] [place], [address], 12/17/2023 03:08:38 12/16/1912/17/2023 CBC WITH DIFFE RENTI AL/PL ATELE T RDW 14.4 % 11.5-1 4.5 Not Available [facility] Department [address] [place], [address], 12/17/2023 03:08:38 12/16/1912/17/2023 CBC WITH DIFFE RENTI AL/PL ATELE T platelets 196 x10e3 /uL 150-45 0 Not Available [facility] Department [address] [place], [address], 12/17/2023 03:08:38 12/16/1912/17/2023 CBC WITH DIFFE RENTI AL/PL ATELE T neutrophils 58 % notest b. Not Available [facility] Department [address] [place], [address], 12/17/2023 03:08:38 12/16/1912/17/2023 CBC WITH DIFFE RENTI AL/PL ATELE T lymphs 29 % notest b. Not Available [facility] Department [address] [place] [address], [address], 12/17/2023 03:08:38 12/16/1912/17/2023 CBC WITH DIFFE RENTI AL/PL ATELE T monocytes 10 % notest b. Not Available [facility] Department [address] [place], [address], 12/17/2023 03:08:38 12/16/1912/17/2023 CBC WITH DIFFE RENTI AL/PL ATELE T eos 2 % notest b. Not Available [facility] Department [address] [place], [address], 12/17/2023 03:08:38 12/16/1912/17/2023 CBC WITH DIFFE RENTI AL/PL ATELE T basos 0 % notest b. Not Available [facility] Department [address] [place], [address], 12/17/2023 03:08:38 12/16/1912/17/2023 CBC WITH DIFFE RENTI AL/PL ATELE T neutrophils (absolute) 2.7 x10e3 /uL 1.4-7. 0 Not Available [facility] Department [address] [place], [address], 12/17/2023 03:08:38 12/16/1912/17/2023 CBC WITH DIFFE RENTI AL/PL ATELE T lymphs (absolute) 1.4 x10e3 /uL 0.7-3. 1 Not Available [facility] Department [address] [place], [address], 12/17/2023 03:08:38 12/16/1912/17/2023 CBC WITH DIFFE RENTI AL/PL ATELE T monocytes(ab solute) 0.5 x10e3 /uL 0.1-0. 9 Not Available [facility] Department [address] [place], [address], 12/17/2023 03:08:38 12/16/1912/17/2023 CBC WITH DIFFE RENTI AL/PL ATELE T eos (absolute) 0.1 x10e3 /uL 0.0-0. 4 Not Available [facility] Department [address] [place], [address], 12/17/2023 03:08:38 12/16/1912/17/2023 CBC WITH DIFFE RENTI AL/PL ATELE T baso (absolute) 0.0 x10e3 /uL 0.0-0. 2 Not Available [facility] Department [address] [place], [address], 12/17/2023 03:08:38 12/16/1912/17/2023 CBC WITH DIFFE RENTI AL/PL ATELE T immature granulocytes 0.4 % notest b. Not Available [facility] Department [address] [place], [address], 12/17/2023 03:08:38 12/16/19 24 12/17/2023 CBC WITH DIFFE RENTI AL/PL ATELE T immature grans (abs) 0.0 x10e3 /uL 0.0-0. 1 Not Available [facility] Department [address] [place], [address], 12/17/2023 03:08:38 12/16/19 24 12/17/2023 CBC WITH DIFFE RENTI AL/PL ATELE T NRBC 0 % 0-0 Not Available [facility] Department [address] [place], [address], 12/17/2023 03:08:38 12/16/1912/17/2023 HEMOG LOBIN A1C hemoglobin A1C 5.3 % 4.8-5. 6 Predi abete s: 5.7 - 6.4 Diabe mora: >6.4 Glyce reyes contr ol for adult s with diabe mora: <7.0 Not Available [facility] ([facility]) [address] [facility], [place], [address], 12/17/2023 08:28:31 12/16/1912/17/2023 VITAM IN D, 25-HY DROXY vitamin D, 25-hydroxy 30.8 NG/mL 30.0-1 00.0 Vitam in D defic iency has been defin ed by the Insti tute of Medic ine and an Endoc rine Socie ty pract ice guide line as a level of serum 25-OH vitam in D less than 20 ng/mL (1,2) . The Endoc rine Socie ty went on to furth er defin e vitam in D insuf ficie ncy as a level betwe en 21 and 29 ng/mL (2). 1. IOM (Inst itute of Medic ine). 2010. Dieta ry refer ence intak es for calci um and D. Chelsea mckeon [place]: The [facility]io [facility] Press . 2. Phillip burrows MF, Hansa cole [place], Matty off-F madalyn i [place], et al. Evalu ation , treat ment, and preve ntion of vitam in D defic iency : an Endoc rine Socie ty clini clifford pract ice guide line. JCEM. 2010; 96(7) :1911 -30. Not Available [facility] ([facility]) [address], [place], [address], 12/17/2023 08:28:32 01/24/20 24 01/25/2024 Hepat itis C virus Ab Signa l/Cut off in Serum or Plasm a by Immun oassa y hepatitis C virus Ab signal/cutof f in serum or plasma by immunoassay 15.9 text: <1 S/co high hepat itis C antib denis 15.90 (H) <1 S/CO 01/23 11:30 PM [employer] [facility] Not Available Not Available 06/15/2024 14:31:53 01/24/20 24 01/25/2024 Hepat itis C virus Ab Signa l/Cut off in Serum or Plasm a by Immun oassa y interpretati on and review of laboratory results Abnorm al Not Available Not Available 14:31:53 05/12/19 25 05/11/2024 rapid strep group A, throa t Strep negati ve Not Available In-Office Order Internal Use Only DO Not Attach Compendium DO Not Attach Compendium, Do Not Delete/merge, [id number] 05/07/2024 12:15:12 05/12/19 25 05/11/2024 influ honey virus A + B + SARS- CoV-2 (COVI D19) Ag panel , rapid IA, upper respi rator y speci men Flu A negati ve Not Available In-Office Order Internal Use Only DO Not Attach Compendium DO Not Attach Compendium, Do Not Delete/merge, [id number] 05/07/2024 12:15:11 05/12/19 25 05/11/2024 influ honey virus A + B + SARS- CoV-2 (COVI D19) Ag panel , rapid IA, upper respi rator y speci men Flu B negati ve Not Available In-Office Order Internal Use Only DO Not Attach Compendium DO Not Attach Compendium, Do Not Delete/merge, [id number] 05/07/2024 12:15:11 05/12/1905/11/2024 influ honey virus A + B + SARS- CoV-2 (COVI D19) Ag panel , rapid IA, upper respi rator y speci men Rapid SARS CoV 2 Ag, QL IA, respiratory specimen negati ve Not Available In-Office Order Internal Use Only DO Not Attach Compendium DO Not Attach Compendium, Do Not Delete/merge, 05/07/2024 12:15:11 06/04/1906/03/2024 Hepat ic funct ion 2000 panel - Serum or Plasm a bilirubin.to jennie [mass/volume ] in serum or plasma 0.2 mg/dL low: 0.2mg/ dLhigh : 1.2mg/ dL T BILI 0.2 0.2 - 1.2 mg/dL 06/03 2:49 PM CDT [facility] Not Available Not Available 06/15/2024 14:31:53 06/04/1906/03/2024 Hepat ic funct ion 2000 panel - Serum or Plasm a bilirubin.di rect [mass/volume ] in serum or plasma 0.1 mg/dL low: 0mg/dL high: 0.5mg/ dL BILIR UBIN, DIREC T 0.1 0.0 - 0.5 mg/dL 06/03 2:49 PM CDT [facility] Not Available Not Available 06/15/2024 14:31:53 06/04/1906/03/2024 Hepat ic funct ion 2000 panel - Serum or Plasm a alkaline phosphatase [enzymatic activity/vol ume] in serum or plasma 89 U/L low: 40U/Lh igh: 150U/L ALKAL INE PHOSP HATAS E 89 40 - 150 U/L 06/03 2:49 PM CDT [facility] Not Available Not Available 06/15/2024 14:31:53 06/04/19 25 06/03/2024 Hepat ic funct ion 2000 panel - Serum or Plasm a aspartate aminotransfe rase [enzymatic activity/vol ume] in serum or plasma 25 U/L high: 43U/L SGOT (AST) 25 <43 U/L 06/03 2:49 PM CDT [facility] Not Available Not Available 06/15/2024 14:31:53 06/04/19 25 06/03/2024 Hepat ic funct ion 2000 panel - Serum or Plasm a alanine aminotransfe rase [enzymatic activity/vol ume] in serum or plasma 15 U/L high: 56U/L SGPT (ALT) 15 <56 U/L 06/03 2:49 PM CDT [facility] [employer] [facility] Not Available Not Available 06/15/2024 14:31:53 06/04/1906/03/2024 Hepat ic funct ion 2000 panel - Serum or Plasm a protein [mass/volume ] in serum or plasma 7.5 g/dL low: 6g/dLh igh: 8g/dL TOTAL PROTE IN 7.5 6.0 - 8.0 g/dL 06/03 2:49 PM CDT [facility] [employer] [facility] Not Available Not Available 06/15/2024 14:31:53 06/04/1906/03/2024 Hepat ic funct ion 2000 panel - Serum or Plasm a albumin [mass/volume ] in serum or plasma 3.9 g/dL low: 3.5g/d Lhigh: 5g/dL ALBUM IN 3.9 3.5 - 5.0 g/dL 06/03 2:49 PM CDT [facility] Not Available Not Available 06/15/2024 14:31:53 06/04/19 25 06/03/2024 Hepat ic funct ion 2000 panel - Serum or Plasm a interpretati on and review of laboratory results Normal Not Available Not Available 10/2024 14:31:53 04/14/06/23/2024 IGP, APTIM A HPV, RFX 16/18 ,45 HPV aptima POSITI VE negati ve abnormal This nucle ic acid ampli ficat ion test detec ts fourt een high- risk HPV types (16,1 8,31, 33,35 ,39,4 5,51, 52,56 ,58,5 9,66, 68) witho ut diffe renti ation . Not Available [facility] ([facility]) [address] [facility], [place], [address], 06/26/2024 06:49:02 06/22/1906/24/2024 IGP, APTIM A HPV, RFX 16/18 ,45 diagnosis: ZEESHAN Reyes NEGAT JAM FOR INTRA EPITH ELIAL LESIO N OR MICHELET DE LOS SANTOS . THIS SPECI MEN WAS RESCR EENED PART OF OUR QUALI TY CONTR OL PROGR AM. Not Available [facility] ([facility]) [address] [facility], [place], [address], 06/26/2024 06:49:02 06/22/1906/24/2024 IGP, APTIM A HPV, RFX 16/18 ,45 specimen adequacy: ZEESHAN Reyes Satis facto eric for evalu ation . Endoc ervic al and/o r squam ous metap lasti c cells (endo cervi clifford compo nent) are prese nt. Not Available [facility] ([facility]) [address] [facility], [place], [address], 06/26/2024 06:49:02 06/22/1906/24/2024 IGP, APTIM A HPV, RFX 16/18 ,45 clinician provided ICD10: ZEESHAN Reyes Z12.4 Not Available [facility] ([facility]) [address] [facility], [place], [address], 06/26/2024 06:49:02 06/22/1906/24/2024 IGP, APTIM A HPV, RFX 16/18 ,45 performed by: ZEESHAN Do , Cytot echno logis t (ASCP ) Not Available [facility] ([facility]) [address] [place], [address], 06/26/2024 06:49:02 06/22/1906/24/2024 IGP, APTIM A HPV, RFX 16/18 ,45 QC reviewed by: ZEESHAN smith, Cytot echno logis t (ASCP ) Not Available [facility] ([facility]) [address] [place], [address], 06/26/2024 06:49:02 06/22/1906/24/2024 IGP, APTIM A HPV, RFX 16/18 ,45 . . Not Available [facility] ([facility]) [address] [facility], [place], [address], 06/26/2024 06:49:02 06/22/1906/24/2024 IGP, APTIM A HPV, RFX 16/18 ,45 note: ZEESHAN Reyes The Pap smear is a scree michael test desig sumi to aid in the detec tion of sammie ligna nt and malig nant condi tions of the uteri ne cervi x. It is not a diagn ostic proce dure and shoul d not be used as the sole means of detec ting cervi clifford cance r. Both false -posi tive and false -nega tive repor ts do occur . Not Available [facility] ([facility]) [address] [place], [address], 06/26/2024 06:49:02 06/22/1906/24/2024 IGP, APTIM A HPV, RFX 16/18 ,45 test methodology: ZEESHAN Reyes This liqui d based ThinP rep(R ) pap test was scree sumi with the use of an image guide leonie davis. Not Available [facility] ([facility]) [address] [place], [address], 06/26/2024 06:49:02 06/22/1906/24/2024 IGP, APTIM A HPV, RFX 16/18 ,45 HPV genotype reflex COMMEN T Crite chester met, see HPV Genot ype resul ts. Not Available [facility] ([facility]) [address] [facility], [place], [place], [address], 06/26/2024 06:49:02 06/22/1906/25/2024 HPV GENOT YPES 16/18 ,45 HPV genotype 16 Negati ve negati ve Not Available [facility] ([facility]) [address] [facility], [place], [address], 06/26/2024 06:49:03 06/22/1906/25/2024 HPV GENOT YPES 16/18 ,45 HPV genotype 18,45 Positi ve negati ve abnormal Not Available [facility] ([facility]) [address] [facility], [place], [address], 06/26/2024 06:49:03 Result Notes None recorded. Problems Name Problem SNOMED Code Status Onset Date Resolution Date Notes Provider Name and Address Organization Details Recorded Time Cannabis dependence 17843976 Active 2017 Maribel Rascon MD Attn: Accounting, [address] [place], [address], [facility] 8 16:54:26 Tobacco dependence syndrome 71395847 Active 2017 ROXANN VENCES NP Attn: Accounting, [address] [place], [address], [facility] 4 14:17:24 Body mass index 25-29 - overweight 092806237 Active 2017 Maribel Rascon MD Attn: Accounting, [address] [place], [address], [facility] 8 16:54:29 Hallucinat ions 2522948 Active 2017 ROXANN VANGIE, [employer] Attn: Accounting, [address] [facility], [place], [address], [place] [facility] 4 14:17:24 Depressive disorder 75972860 Active ROXANN VENCES NP Attn: Accounting, [address] [facility], [place], [address], [place] [facility] 4 14:17:24 Anemia 785599470 Active Kwesi Cue[place] [facility] 5 15:02:25 Miscarriag e 69452616 Active Sarah Delgado [place], [place] [facility] 4 14:06:58 Opioid dependence 18706584 Active 2013 ROXANN VENCES NP Attn: Accounting, [address] [facility], [place], [address], [place] [facility] 4 14:18:50 Drug abuse 18948151 Active 2023 ROXANN VENCES NP Attn: Accounting, [address] [facility], [place], [address], [place] [facility] 4 14:51:51 Obesity 285723188 Active 2023 ROXANN VENCES NP Attn: Accounting, [address] [facility], [place], [address], [place] [facility] 4 14:51:06 Electronic cigarette user 505965330 Active 2023 ROXANN VENCES NP Attn: Accounting, [address] [facility], [place], [address], [place] [facility] 4 14:51:51 Bilateral carpal tunnel syndrome 987980879349 64126 Active 2023 ROXANN VENCES NP Attn: Accounting, [address] [facility], [place], [address], [place] [facility] 4 14:51:51 Chronic hepatitis C 653282612 Active 2023 ROXANN VENCES NP Attn: Accounting, [address] [facility], [place], [address], [place] [facility] 4 14:51:51 Mixed anxiety and depressive disorder 531752340 Active 2023 ROXANN VENCES NP Attn: Accounting, [address] [facility], [place], [address], [place] [facility] 4 14:51:51 Hyperlipid emia 36074574 Active 2023 ROXANN VENCES NP Attn: Accounting, [address] [facility], [place], [address], [place] [facility] 4 13:16:09 Generalize d edema 520572696 Active 2023 ROXANN VENCES NP Attn: Accounting, [address] [facility], [place], [address], [place] [facility] 4 15:15:36 Notes:Bacterial Vaginal Infe ctions Problem Notes None recorded. Procedures Surgical History Date Name Laterality Status Provider Name and Address Organization Details Recorded Time 06/22/19 Date of Last Pap Smear completed ORACIO COBIAN NP Attn: Accounting,[address] [facility], [place], [address], [place] [facility] 06/29/2024 17:25:25 Tonsillectomy completed Kwesi Cueva [place] - [facility] 05/03/2014 15:01:24 Anesth knee area surgery completed Kwesi Cueva [place] - [facility] 05/03/2014 15:01:24 Imaging Results None recorded. Procedure Notes None recorded. Medical Equipment None Reported. Allergies Allergen ID Allergen Name Allergen Category Reaction Reaction Severity Criticality Documentation Date Start Date Code Code System Note Provider Name and Address Organization Details Recorded Time 686193 atorvasta tin medicatio n edema moderate high 01/01/2024 02335 RxNorm ROXANN VENCES NP Attn: Accountin g,[address] [facility], [place], [address], [place] [facility] 4 14:51:00 Medications Name Sig Start Date Stop Date Status Note LastModified by Organization Details LastModified Time norethind maci tab 0.35mgnor ethindron e active Not Available Not Available Not Available hydroco/a pap tab 5-325mg active Not Available Not Available Not Available atorvasta tin 40 mg tablet TAKE 1 TABLET BY MOUTH EVERY DAY IN THE EVENING 12/31 completed swelling Not Available Not Available Not Available ivermecti n 3 mg tablet TAKE 6 TABLETS BY MOUTH EVERY 10 DAYS FOR 2 DOSES 12/01 completed Not Available Not Available Not Available methadone 10 mg/5 mL oral solution 10/30 completed Not Available Not Available Not Available atorvasta tin 10 mg tablet 10/30 completed Not Available Not Available Not Available valacyclo vir 1 gram tablet TAKE 1 TABLET BY MOUTH EVERY 12 HOURS FOR 7 DAYS active Not Available Not Available No t Available prednison e 20 mg tablet 10/30 completed Not Available Not Available Not Available permethri n 5 % topical cream APPLY 1 APPLICAT ION TO SKIN ONCE, LEAVE ON FOR 8 TO 14 HRS BEFORE WASHING OFF 07/12 completed Not Available Not Available Not Available potassium chloride ER 10 mEq tablet,ex tended release TAKE 1 TABLET BY MOUTH DAILY 02/09 completed Not Available Not Available Not Available metronida zole 500 mg tablet TAKE 1 TABLET BY MOUTH TWICE DAILY. AVOID ALCOHOL DURING AND 3 DAYS AFTER TREATMEN T 07/12 completed Not Available Not Available Not Available sulfameth oxazole 800 mg-trimet hoprim 160 mg tablet 12/01 completed Not Available Not Available Not Available alprazola m 0.5 mg tablet 10/30 completed Not Available Not Available Not Available cephalexi n 500 mg capsule 12/01 completed Not Available Not Available Not Available lisinopri l 10 mg tablet 10/30 completed Not Available Not Available Not Available mupirocin calcium 2 % topical cream 12/01 completed Not Available Not Available Not Available furosemid e 20 mg tablet TAKE 1 TABLET BY MOUTH EVERY DAY FOR 3 DAYS 02/09 completed Not Available Not Available Not Available methylpre dnisolone 4 mg tablets in a dose pack FOLLOW PACKAGE DIRECTIO NS 05/07 completed Not Available Not Available Not Available albuterol sulfate HFA 90 mcg/actua tion aerosol inhaler INHALE 2 PUFFS BY MOUTH EVERY 4 HOURS NEEDED FOR COUGH/DY SPNEA/WH EEZING 07/12 completed Not Available Not Available Not Available sertralin e 50 mg tablet 10/30 completed Not Available Not Available Not Available doxycycli ne hyclate 100 mg tablet TAKE 1 TABLET BY MOUTH TWICE A DAY 12/01 completed Not Available Not Available Not Available Lexapro 10 mg tablet Take 1 tablet every day by oral route. 12/01 completed Not Available Not Available Not Available Juliet-BE 0.35 mg tablet Take 1 tablet every day by oral route. 10/30 completed Not Available Not Available Not Available ezetimibe 10 mg tablet TAKE 1 TABLET BY MOUTH EVERY DAY, Need to schedule appointm ent with pcp for addition al refills 2024 active Not Available Not Available Not Avai lable duloxetin e 20 mg capsule,d elayed release TAKE 1 CAPSULE BY MOUTH TWICE DAILY active Not Available Not Available No t Available methadone 100 mg daily active Not Available Not Available No t Available Vitals Date Recorded Body height Body mass index (BMI) Body weight Body temperature Respiratory rate Oxygen saturation Oxygen saturation in Arterial blood by Pulse oximetry Heart rate Systolic blood pressure Diastolic blood pressure Provider Name and Address Organization Details Last Updated DateTime 5 170.18 cm 36.8 kg/m2 224948. 21 g 96.6 [degF] 16 /min 94 % 94 % 123 /min 116 mm[Hg] 82 mm[Hg] Viv Gerardo [place] - [facility] 5 12:01:35 Date Recorded Body height Body mass index (BMI) Body weight Respiratory rate Heart rate Systolic blood pressure Diastolic blood pressure Provider Name and Address Organization Details Last Updated DateTime 5 170.18 cm 37.1 kg/m2 964079. 39 g 16 /min 67 /min 138 mm[Hg] 96 mm[Hg] Nicole Dalton [place] - [facility] 5 12:41:25 Date Recorded Body height Respiratory rate Body mass index (BMI) Body weight Body temperature Heart rate Oxygen saturation Oxygen saturation in Arterial blood by Pulse oximetry Systolic blood pressure Diastolic blood pressure Provider Name and Address Organization Details Last Updated DateTime 5 170.18 cm 16 /min 36.8 kg/m2 204303. 26 g 96.8 [degF] 71 /min 99 % 99 % 153 mm[Hg] 103 mm[Hg] Sherly Cummings [facility] 5 14:44:18 Date Recorded Body height Body mass index (BMI) Body weight Oxygen saturation Oxygen saturation in Arterial blood by Pulse oximetry Heart rate Respiratory rate Body temperature Systolic blood pressure Diastolic blood pressure Provider Name and Address Organization Details Last Updated DateTime 4 170.18 cm 35.3 kg/m2 601395. 68 g 98 % 98 % 101 /min 16 /min 97.2 [degF] 108 mm[Hg] 70 mm[Hg] Ximena Bolivar LPN [facility] 4 14:05:34 Date Recorded Body height Respiratory rate Body mass index (BMI) Body weight Body temperature Heart rate Oxygen saturation Oxygen saturation in Arterial blood by Pulse oximetry Systolic blood pressure Diastolic blood pressure Provider Name and Address Organization Details Last Updated DateTime 4 170.18 cm 16 /min 36.3 kg/m2 971811. 78 g 97.1 [degF] 85 /min 99 % 99 % 126 mm[Hg] 87 mm[Hg] Sherly Cummings [facility] 4 14:24:10 Social History Question Answer Notes LastModified by Aylaizat ion Details LastModified Time Tobacco Smoking Status Former Smoker Ximena Bolivar LPN [facility] 12/02/2023 14:07:48 Do You Have An Advance Directive? No Information not available 12/02/2023 Are You Blind Or Do You Have Difficulty Seeing? No Information not available 12/02/2023 What Is Your Level Of Caffeine Consumption? Occasional [email or web address] Information not available 05/03/2014 In The 14 Days Before Symptom Onset, Have You Had Close Contact With A Laboratory-confir med COVID-19 While That Case Was Ill? No Information not available 12/02/2023 In The 14 Days Before Symptom Onset, Have You Had Close Contact With A Person Who Is Under Investigation For COVID-19 While That Person Was Ill? No Information not available 12/02/2023 Have You Been To An Area Known To Be High Risk For COVID-19? No Information not available 12/02/2023 Are You Deaf Or Do You Have Serious Difficulty Hearing? No Information not available 12/02/2023 What Type Of Diet Are You Following? REGULAR Information not available 12/02/2023 Which Illicit Or Recreational Drugs Have You Used? No Information not available 05/03/2014 Are There Any Guns Present In Your Home? No Information not available 12/02/2023 What Was The Date Of Your Most Recent Tobacco Screening? 07/12/2024 Information not available 07/12/2024 How Many Children Do You Have? 1 Information not available 12/02/2023 Performs Monthly Self-breast Exam? Yes [email or web address] Information no t available 05/03/2014 What Is Your Relationship Status? Information not available 12/02/2023 Do You Use Your Seat Belt Or Car Seat Routinely? Yes Information not available 01/01/2024 Seat Belts Used Routinely Yes [email or web address] Information not available 05/03/2014 Are You Sexually Active? No Information not available 12/02/2023 Do You Have Smoke And Carbon Monoxide Detectors In Your Home? Yes Information not available 12/02/2023 Are You Passively Exposed To Smoke? No Information no t available 12/02/2023 How Much Tobacco Do You Smoke? No Information not available 12/02/2023 Do You Use Sunscreen Routinely? Yes [email or web address] Information not available 05/03/2014 Has Tobacco Cessation Counseling Been Provided? Yes Information not available 07/12/2024 On What Date Was Tobacco Cessation Counseling Provided? 07/12/2024 Information not available 07/12/2024 How Many Years Have You Smoked Tobacco? 14 [email or web address] Information not available 02/02/2014 Sex: Female Functional Status Question Answer Note LastModified by Organizat ion Details LastModified Time Do you use any illicit or recreational drugs? Yes Information not available 12/02/2023 Do you or have you ever used any other forms of tobacco or nicotine? Yes Information not available 06/21/2024 What is your level of alcohol consumption? None Information not available 05/03/2014 Are you currently employed? No Information not available 12/02/2023 Are you able to care for yourself? Yes Information not available 12/02/2023 Do you or have you ever used e-cigarettes or vape? Current user of electronic cigarettes Information not available 06/21/2024 What is your exercise level? None Information not available 12/02/2023 Mental Status Question Answer Note LastModified by Organization D etails LastModified Time Do you feel stressed (tense, restless, nervous, or anxious, or unable to sleep at night)? [id number] Information not available 01/01/2024 Family History Relationship Description Onset Age of this Age Resolved Age Notes LastModified by Organization Details LastModified Time Mother Heart disease [email or web address] Not available 2014 15:01:24 Mother History of hypertension Not available 15:01:24 Mother Malignant tumor of unknown origin [email or web address] Not available 2014 15:01:24 Mother Hyperlipidem ia [email or web address] Not available 2014 15:01:25 Father Hypertensive disorder [email or web address] Not available 2014 15:01:25 Paternal Grandmother Hypertensive disorder Not available 2014 15:01:25 Paternal Grandmother History of cerebrovascu lar accident [email or web address] Not available 15:01:25 Maternal Grandfather Esophagitis [email or web address] Not available 05/03/2014 15:01:25 Maternal Grandfather Hypertensive disorder [email or web address] Not available 2014 15:01:25 Medical History Condition Response Depression Y Headaches/Migraines Y GI Problems Y Anemia Y Hypertension Y Gynecological History Statement/Question Response Abnormal Pap Y Flow Moderate STIs/STDs N HPV Vaccine N Most Recent Mammogram Age at Menarche 11 Current Control Method Condoms Age at First Child 16 Frequency of Cycle (Q days) 5 Sexually Active? Y Menses Monthly Y Date of Last Pap Smear 06/21/2024 Sexual Problems? N LMP Definite Desired Control Method BCPs Obstetrics History GPAL:G 3 P 1 0 2 1 Type Value Multiple Births 0 Full Term 1 Induced 1 Spontaneous 1 Premature 0 Living 1 Ectopics 0 Total 3 Immunizations Vaccine Type Date Status Note Provider Александр cochran and Address Organization Details Recorded Time Tdap 04/16/2020 completed ROXANN VENCES NP Attn: Accounting[address] , [place], [address], [facility] 12/02/2023 14:18:15 Influenza, split virus, quadrivalent, PF 01/28/2020 completed ROXANN VENCES NP Attn: Accounting,[address] , [place], [address], [facility] 12/02/2023 14:18:15 Past Encounters Encounter ID Performer Location Encounter Start Date Encounter Closed Date Diagnosis/Indication Diagnosis SNOMED-CT Code Diagnosis ICD10 Code Diagnosis Note [id number] [facility] [employer] [address] [facility] [address] [place] [address] 02/02/2014 15:52:53 02/02/2014 17:21:54 Miscarriage [id number] Pt. was seen at [place] for but miscarried . She did not have her blood drawn after that. Need to follow beta hCG down to zero before getting again d/w pt. Uses oral contraception [id number] PT was on Micronor previously and wants to get back on it. She is still smoking. Pt is s/p miscarriag e. Will check beta hCG and if neg, will send Rx for Micronor. [id number] MD Sherita Robbins ([employer]) [address] [place] [address] 05/03/2014 14:43:46 05/03/2014 16:39:38 Gynecologic examination 07037618 Last pap done 06/23/12 was normal with negative hr-HPV. Therefore, no pap needed. Pt. declines STD, cholestero l, glucose, and thyroid testing. Uses oral contraception [id number] PT was on Micronor previously and wants to get back on it. She is still smoking. [id number] MD Zaida De Jesus 14 IM [address] [facility] [address] [place], [place] [address], [place] [address] 10/30/2017 15:15:49 11/03/2017 14:35:02 Mixed anxiety and depressive disorder 959664153 F41.8 Empiricall y try back on lexapro as preferred by the pt, Aware of SE. Pam is of skin AND/OR subcutaneous tissue 54350273 L02.92 Probable community MRSA On bactrim mupirocin per ER. improvemen t of healing is OK (as well by the pt)If getting worse go to ER.RTC in 2-3 months vs may see another provider as you suggested Cannabis dependence 8500 5007 F12.20 Recommend to stay away from it. Tobacco de pendence syndrome 59179768 F17.200 Recommend to slow myron and quit at the earliest- 1 PPD Body mass index 25-29 - overweight 056125905 Z68.28 Recommend to loose weight with diet control and exercise. Hallucinations 3890589 R 44.3 Like worms out of sking, crawling feeling. Recommend to see psychiatri [id number] Hansel Brantley MD [facility] [address] [place] [address] 12/02/2023 13:56:28 12/10/2023 12:48:36 Adult health examination 383600747 Z00.00 - Discussed with patient findings, diagnoses, and prognosis. - Discussed plan of care including treatment options, risks, and benefits with patients. Patient expressed understand ing.- The following interventi ons were recommende d: heart healthy low-fat, low-sodium diet, ideal body weight, regular exercise, medication s compliance , and medical follow-up as noted. Mixed anxi ety and depressive disorder 689796453 F41.8 - Discussed symptoms of depression /anxiety as well as the different treatment types.- Encouraged psychother apy in adjunct with medication therapy,.- All questions and concerns were addressed. - Pt to take meds as directed.- Pt is to monitor symptoms and RTC sooner if symptoms are worsening or not improving. Hyperlipidemia 43977230 E78.5 Diabetes m ellitus screening 738049047 Z13.1 Chronic hepatitis C 1283 81082 B18.2 Bilateral carpal tunnel syndrome 4059095347 4855302 G56.03 Recommende d wrist splints, especially at night. The patient reports that she already has wrist splints, which have not been effective in relieving her symptoms. Electronic cigarette user 042948762 Z72.89 Encouraged participat ion in support groups or counseling focused on smoking/va ping cessation. Obesity 969691669 E66.8 advised low fat, low cholestero l, low carb diet, regular exercise and weight reduction. Drug abuse 16829838 F19. 10 Continue methadone as prescribed ; [id number] Hansel Brantley MD [facility] [address] [place] [address] 01/01/2024 14:07:10 01/02/2024 15:25:39 Generalized edema 117371527 R60.1 Generalize d swelling likely associated with atorvastat in use Discontinu ed atorvastat inRTC for new or worsening symptoms. Hyperlipidemia 64093634 E78.5 Mixed anxi ety and depressive disorder 965208715 F41.8 - stabilizin g- Pt to take meds as directed.- Pt is to monitor symptoms and RTC sooner if symptoms are worsening or not improving. [id number] Hansel Brantley MD [facility] [address] [place] [address] 05/07/2024 11:53:54 05/10/2024 15:43:42 Herpes labialis 9185414 B00.1 -Noted to patient's upper lip and below nose.-Itzel ent agreeable to treatment with valacyclov ir BID. Due to patient's chronic history of herpes labialis, ordering 7 day treatment to help with flare.-Pat ient to f/u with PCP to discuss chronic management . Cough 92954427 R05.9 -Patient requested to be tested for URIs-Negat jam for influenza and strep-Itzel ent just finished antibiotic today. Patient to monitor symptoms. If patient symptoms do not improve, she will contact clinic.-Pa tient to f/u with PCP-ER precaution s advised [id number] ORACIO COBIAN, JENN[facility] [address] [place] [address] 06/21/2024 12:28:22 06/23/2024 11:06:58 Screening for malignant neoplasm of cervix 839869762 Z12.4 [employer] exam completed1 . Pap and cotesting done; Pt has no pap history2. Pt is using condoms for control.3. Educated on STI reduction and prevention . Encouraged condom use.4. 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 Obesity 355275895 E66.9 [id number] Hansel Brantley MD [facility] [address] [place] [address] 07/12/2024 14:11:25 07/13/2024 11:39:14 Elevated blood-pressure reading without diagnosis of hypertension 689886934 R03.0 - b/p in office today 153/103- Take occasional BP s, call if consistent ly >140/90.- Discussed reasons for sooner f/u than 1 month.- Patient verbalizes understand ing. Drug abuse 15295247 F19. 10 Continue methadone as prescribed ; Follow-up encounter 3909 70930 Z09 ER follow-up after visiting [facility] on 07/10/24 Symptoms ResolvedNo further interventi on needed at this timeEncour aged hydration and gradual return to normal dietFollow up as needed for any recurrence of symptoms Health Concerns Section Related Observation LastModified by Organization Detai ls LastModified Time None Recorded Concern Status LastModified by Organization Details LastModified Time None Recorded Advance Directives Directive N: Payers Encounter Date Sequence Insurance Name Policy Number Policy Stock Covered Member ID Stock Member ID Guarantor Name 12/02/2023 1 [facility] ON OR AFTER 09/07/20 (MEDICAID REPLACEMENT - HMO) Celeste Gregory [id number] Celeste Gregory 01/01/2024 1 [facility] ON OR AFTER 09/07/20 (MEDICAID REPLACEMENT - HMO) Celeste Gregory [id number] Celeste Gregory 01/01/2024 2 [place] [facility] OF PUBLIC AID Celeste Gregory [id number] Celeste Gregory 05/07/2024 1 [facility] ON OR AFTER 09/07/20 (MEDICAID REPLACEMENT - HMO) Celeste Gregory [id number] Celeste Gregory 06/21/2024 1 [facility] ON OR AFTER 09/07/20 (MEDICAID REPLACEMENT - HMO) Celeste Gregory [id number] Celeste Gregory 07/12/2024 1 [facility] ON OR AFTER 09/07/20 (MEDICAID REPLACEMENT - HMO) Celeste Gregory [id number] Celeste Gregory Notes Date Note Type Note Provider Name and Address Organization Details Recorded Time 12/02/2023 text/html Anxiety/Depressi onR eported bypatient.Quality:m ood worse;increased anxiety Severity:denies suicidal ideations Context:major life stressors;drug use Associated Symptoms:anxiety;de pression Ms. Gregory is a 43-year-old female presenting to establish care. She last saw a primary care provider in 2019 after being released from nursing home, where she was incarcerated for five years. 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 She has a history of hepatitis C diagnosed in 2013 but has not received any treatment for it. The patient also mentions having high cholesterol and bilateral carpal tunnel syndrome affecting both hands. Additionally, she has a history of anxiety and depression and currently vapes. ROXANN VENCES NP Attn: Accounting[address] [place], [address], [facility] 12/09/2023 16:17:00 01/01/2024 text/html Anxiety/Depressi onR eported bypatient.Quality:s ymptoms improved Severity:denies suicidal ideations Duration:stablizing Modifying Factors:medications as directed Ms. Gregory presents for a follow-up appointment, reporting generalized swelling since starting atorvastatin. She describes feeling swollen all over, with no specific areas of increased discomfort. She denies any recent changes in diet, activity, or medication, except for the addition of atorvastatin. No other symptoms such as shortness of breath, chest pain, or rash are reported. ROXANN VENCES NP Attn: [address]ing[address] [place], [address], [facility] 01/01/2024 16:00:03 05/07/2024 text/html Patient presents to the clinic with acute concern for a cold sore. Patient is established with Roxann [email or web address] for primary care. Patient's past medical history includes: hepatitis C, drug abuse, tobacco use, anxiety, depression, and hyperlipidemia. Herpes Labialis-Patient reports she was treated by Urgent Care for URI. She went to on 05/03/24 and 04/24/24. She was treated with azithromycin and medrol dose pack.-Patient took last dose of z pack today-Patient reports she has been having high fevers, cough-productive green sputum, sinus congestion, sore, nausea/vomiting, increased fatigue, body aches-Denies symptoms of diarrhea.-Patient reports she has developed a cold sore. Reports history of treatment with valtrex. TESSIE SANCHEZ, MECHANICAL DRAWING TEACHER-BC Attn: [address] [place], [address], [facility] 05/07/2024 14:38:29 06/21/2024 text/html Celeste leahy 43 yo presenting for pap smear. Reports regular menstrual cycles every 28-30 days with moderate flow lasting 4-5 days changing pads/tampons every 3 hours on heaviest day. 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 Colt dutton ts for ER follow-up after visiting [facility] on 07/10/24 for two days of vomiting. Symptoms have resolved, and patient feels much better today. ROXANN VENCES NP Attn: [address] [place], [address], [facility] 07/13/2024 08:37:18 OBGyn Episode Ob Episode Information Episode Created Date Number of Fetuses Patient Bloodtype Patient rh Status Prepregnancy Weight lbs Domestic Partner Domestic Partner Phone Father Name Sight Mounter Status 05/03/19 15 1 CLOSED Fetus Data First Name Last Name Admitted to NICU Weight (g) Sex Living Outcome Pediatric Complications Fetus ID Race Codes Race Delivery Type M [id number] Vaginal Espinoza Calculation Initial Espinoza Date Initial Exam Date Initial Exam Provider Initial Ultrasound Date Last Menstrual Period Date Ultra Sound Weeks Gestation 0 Eighteen To Twenty Week Espinoza Update Ultra Sound Date Fundal Height At Umbil Quickening Date Ultra Sound Latest Weeks Gestation Final Espinoza Confirmed By Final Espinoza Confirmed Date Final Espinoza Date Ultra Sound Latest Days Gestation 0 0 Menstrual History Last Menstrual Date Menses Monthly On Bcp Conception Prior Menses Frequency Hcg Plus Date Menarche Onset Age Delivery Information Delivery Date Delivery Type Labor Anesthesia Weeks Gestation Incision Type Labor Labor Length Hrs Delivered By Post Complications Tubal Sterilization Discharge Date Comments 9 Discharge Information Feeding Method Contraceptive Method Maternal HG B and HCT Levels
--- OUTSIDE RECORDS SUMMARY | 2024-08-09 03:51 | XMS_ITS | Clinical Summary ---
Author Organization [facility] Address [address] [place] [address] Phone Care Team Providers Care Fighter Pilot Name Role Phone Roxann Boyd APRN, CALL CENTER SUPPORT REPRESENTATIVE Primary Care Provider Vicky Jacobs APRN, STACY Unavailable Allergies Active Allergy Reactions Criticality Noted Date Comments Atorvastatin Unknown High 07/13/2024 Medications rosuvastatin (Crestor) 10 MG Tablet Take 10 mg by mouth daily. Active loratadine (Claritin) 10 MG Tablet Take 10 mg by mouth daily. Active cyclobenzaprine (FLEXERIL) 5 MG Tablet Take 1 Tablet by mouth 3 times daily as needed for Muscle spasms. 15 Tablet 1 Active Additional Information Patient not taking.Reported on 07/13/2024 ibuprofen (MOTRIN) 600 MG Tablet Take 1 Tablet by mouth every 8 hours as needed for Mild or more severe pain. 20 Tablet 1 Active DULoxetine (CYMBALTA) [address] Particles Take 20 mg by mouth 2 times daily. 4 Active ezetimibe (ZETIA) 10 MG Tablet Take 1 Tablet by mouth daily. 4 Active METHADONE HCL PO Take by mouth. Activ e Glecaprevir-Pib rentasvir (Mavyret) 100-40 MG TabletIndicatio ns:Hep C w/o coma, chronic (HCC) Take 3 Tablets by mouth daily (with lunch). 84 Tablet 1 4 Active Additional Information Patient not taking.Reported on 07/13/2024 valACYclovir (VALTREX) 1 GM Tablet TAKE 1 TABLET BY MOUTH EVERY 12 HOURS FOR 7 DAYS Active famotidine (PEPCID) 20 MG Tablet Take 20 mg by mouth. 07/25/19 Active Problems Problem Noted Date Diagnosed Date Anemia 01/21/2024 Hyperlipidemia 12/09/2023 Bilateral carpal tunnel syndrome 12/02/2023 Drug abuse 12/02/2023 Mixed anxiety and depressive disorder 12/02/2023 Chronic hepatitis C 12/02/2023 Acute on chronic congestive heart failure 2022 Cannabis dependence 10/30/2017 Overweight with body mass index (BMI) 25.0-29.9 10/30/2017 Tobacco dependence syndrome 10/30/2017 Opiate addiction 12/08/2013 Encounters Date Type Department Care Team Description 07/13/2024 3:00 PM CDT Office Visit [facility] [address] [place] [address] Vicky Jacobs APRN, STACY Chronic hepatitis C without hepatic coma (HCC) (Primary Dx); History of illicit drug use Discharge Disposition: Discharged to home or Selfcare 07/13/2024 Travel 06/28/2024 Telephone [facility] [address] [place] [address] Vicky Jacobs APRN, CNP 06/25/2024 Telephone [facility] [address] [place] [id number] Vicky Jacobs APRN, CNP 06/07/2024 Results Follow-Up [facility] [address] [place] [address] Vicky Jacobs APRN, STACY HEPATIC FUNCTION PANEL 06/03/2024 Travel 05/11/2024 Refill [facility] [address] [place] [address] Vicky Jacobs, INJECTOR ASSEMBLER, CALL CENTER SUPPORT REPRESENTATIVE Medication Refill from Last 3 Months Immunizations Immunization Administration Dates Next Due TDAP Vaccine 04/16/2020 Social History Tobacco Use Types Packs/Day Years Used Date Smoking Tobacco: Former Cigarettes Alcohol Use Standard Drinks/Week Comments Not Currently 0 (1 standard drink = 0.6 oz pur e alcohol) Comments No Sex and Gender Information Value Date Recorded Sex Assigned at Not on file Legal Sex Female 7:44 PM CDT Gender Identity Not on file Sexual Orientation Not on file Last Filed Vital Signs Vital Sign Reading Time Taken Comments Blood Pressure 166/98 07/13/2024 3:02 PM CDT Pulse 88 07/13/2024 3:02 PM CDT Temperature 36.9 C (98.4 F) 07/13/2024 3:02 PM CDT Respiratory Rate 14 07/13/2024 3:02 PM CDT Oxygen Saturation 98% 07/13/2024 3:02 PM CDT Inhaled Oxygen Concentration - - Weight 107.5 kg (237 lb) 07/13/2024 3:02 PM CDT Height 170.2 cm (5' 7) 07/13/2024 3:02 PM CDT Body Mass Index 37.12 07/13/2024 3:02 PM CDT Plan of Treatment Health Maintenance Due Date Last Done Comments Mammogram 1979 Hepatitis B Immunization (1 of 3 - 19+ 3-dose series) 07/07/1998 Pneumococcal Immunization Combined (1 of 2 - PCV) 07/07/1998 Pap Smear 07/07/2000 Cervical Cancer Screening (CCS) 07/07/2009 HPV/Cotest 07/07/2009 Discussion re Starting/Frequency of Mammograms 2019 SARS-COV-2 Immunization ( - season) 2023 Colonoscopy 07/07/2024 Colorectal Cancer Screening 07/07/2024 Influenza Immunization (Season Ended) 2024 01/28/2020, 12/07/2008 Td Immunization Every 10 Years (Adults With 1 Tdap) 04/16/2030 04/16/2020, 03/06/2009 Respiratory Syncytial Virus (RSV) Immunization (Adult) (1 - 1-dose 75+ series) 07/07/2054 DTaP/Tdap/Td Immunization Discontinued 04/16/2020, Hepatitis C Virus (HCV) Screening Discontinued 01/24/2024, 01/24/2024, 01/23/2024, Additional history exists Human Papillomavirus (HPV) Immunization Aged Out No longer eligible based on patient's age to complete this topic Meningococcal Immunization (ACWY) Aged Out No longer eligible based on patient's age to complete this topic Rotavirus Immunization Aged Out No lo nger eligible based on patient's age to complete this topic Procedures Procedure Name Priority Date/Time Associated Diagnosis Comments HEPATIC FUNCTION PANEL Routine 06/03/2024 1:29 PM CDT Chronic hepatitis C without hepatic coma (HCC) HEPATITIS C ANTIBODY Routine 01/24/2024 9:23 AM WINDOWS SYSTEMS ARCHITECT Hep C w/o coma, chronic (HCC) from Last 3 Months or Most Recently Relevant to Health Maintenance Results * HEPATIC FUNCTION PANEL (06/03/2024 1:29 PM CDT) T BILI 0.2 0.2 - 1.2 mg/dL 06/03/2024 2:49 PM CDT [facility] BILIRUBIN,DIRECT 0.1 0.0 - 0.5 mg/dL 06/03/2024 2:49 PM CDT [facility] ALKALINE PHOSPHATASE 89 40 - 150 U/L 06/03/2024 2:49 PM CDT [facility] SGOT (AST) 25 <43 U/L 06/03/2024 2:49 PM CDT [facility] SGPT (ALT) 15 <56 U/L 06/03/2024 2:49 PM CDT [facility] TOTAL PROTEIN 7.5 6.0 - 8.0 g/dL 06/03/2024 2:49 PM [address] [facility] ALBUMIN 3.9 3.5 - 5.0 g/dL 06/03/2024 2:49 PM [address] [facility] Blood Venipuncture / Unknown 06/03/2024 1:29 PM CDT 06/03/2024 1:48 PM CDT us Vicky Jacobs INJECTOR ASSEMBLER, CALL CENTER SUPPORT REPRESENTATIVE CHEMISTRY ORDERAB LES Final Result [facility] [address] [facility] [place] [place] [address] * (ABNORMAL) HEPATITIS C ANTIBODY (01/24/2024 9:23 AM WINDOWS SYSTEMS ARCHITECT) hepatitis C antibody 15.90(H) <1 S/CO 01/24/2024 11:30 PM WINDOWS SYSTEMS ARCHITECT [facility] Comment: Signal/Cutoff ratio < 0.79 is Nondetected Signal/Cutoff ratio 0.80-0.99 is Grayzone Signal/Cutoff ratio > 0.99 is Detected Supplemental assays are recommended if signal/cutoff ratio is >/=1.00. Signal/cutoff ratio result >/= 5.00 is 97% predictive of positivity for recombinant immunoblot assay (RIBA) and will be reported to the [place] [facility] as required. Result faxed to the [facility] Blood Venipuncture / Unknown 01/24/2024 9:23 AM WINDOWS SYSTEMS ARCHITECT 01/24/2024 10:40 AM WINDOWS SYSTEMS ARCHITECT Vicky Jacobs INJECTOR ASSEMBLER, CALL CENTER SUPPORT REPRESENTATIVE CHEMISTRY ORDERAB LES Final Result [facility] [address] [place] [address], from Last 3 Months or Most Recently Relevant to Health Maintenance Insurance [employer]ICAID [employer] Care Teams Fighter Pilot Relationship Specialty Start Date End Date Roxann Boyd APRN, CNP [address] [place] [address] PCP - General Advanced Practice Nurse 12/15/23 Vicky Jacobs APRN, CNP [address] [place] [address] Nurse Practitioner Advanced Practice Nurse 01/27/24
--- OUTSIDE RECORDS SUMMARY | 2024-08-09 03:51 | XMS_ITS | Referral Summary ---
Author Organization [facility] at the [facility] Address [address] [place] [id number] Care Team Providers Care Piercing Artist Name Role Phone Roxann Boyd NP Primary Care Provider [phone] Encounters Date Type Department Care Team Description 07/10/2024 2:21 PM CDT - 07/10/2024 8:23 PM CDT Emergency [address] [address] Harish Turner MD Epigastric pain (Primary Dx); Nausea and vomiting, unspecified vomiting type; Constipation, unspecified constipation type; Polysubstance abuse (HCC); Hypophosphatemia Discharge Disposition: Discharge to home or self care from Last 3 Months Allergies No known active allergies Medications rosuvastatin (CRESTOR) 10 mg tablet Take 1 tablet (10 mg total) by mouth daily Active famotidine (PEPCID) 20 mg tablet Take 1 tablet (20 mg total) by mouth 2 (two) times a day for 14 days 28 tablet 5 Active ondansetron ODT (ZOFRAN-ODT) 4 mg disintegrating tablet Take 1 tablet (4 mg total) by mouth every 8 (eight) hours as needed for nausea or vomiting 10 tablet 5 Active Active Problems Problem Noted Date Diagnosed Date Anemia 01/21/2024 Hyperlipidemia 12/09/2023 Bilateral carpal tunnel syndrome 12/02/2023 Chronic hepatitis C 12/02/2023 Drug abuse 12/02/2023 Mixed anxiety and depressive disorder 12/02/2023 Obesity 12/02/2023 Acute on chronic congestive heart failure, unspecified heart failure type 02/17/2023 Cannabis dependence 10/30/2017 Tobacco dependence syndrome 10/30/2017 Opiate addiction 12/08/2013 Social History Tobacco Use Types Packs/Day Years Used Date Smoking Tobacco: Every Day Cigarettes Smokeless Tobacco: Never [facility] Utilities Answer Date Recorded In the past 12 months has th e electric, gas, oil, or water company threatened to shut off services in your home? Yes 02/18/2023 Social Connection and Isolat ion Panel [NHANES] Answer Date Recorded In a typical week, how many times do you talk on the phone with family, friends, or neighbors? More than three times a week 02/18/2023 How often do you get togethe r with friends or relatives? More than three times a week 02/18/2023 How often do you attend chur ch or tenriism services? Never 02/18/2023 Do you belong to any clubs o r organizations such as worship groups, unions, fraternal or athletic groups, or school groups? No 02/18/2023 How often do you attend meet ings of the clubs or organizations you belong to? Never 02/18/2023 Are you , , di vorced, , never , or living with a partner? Living with partner 02/18/2023 AUDIT-C Answer Date Recorded Q1: How often do you have a drink containing alcohol? Never 02/18/2023 Q2: How many drinks containi ng alcohol do you have on a typical day when you are drinking? Patient does not drink Q3: How often do you have si x or more drinks on one occasion? Never 02/18/2023 Overall Financial Resource Strain (CARDIA) Answe r Date Recorded How hard is it for you to pa y for the very basics like food, housing, medical care, and heating? Hard 02/18/2023 Hunger Vital Sign Answer Date Recorded Within the past 12 months, y ou worried that your food would run out before you got the money to buy more. Sometimes true Within the past 12 months, t he food you bought just didn't last and you didn't have money to get more. Sometimes true 02/2023 PRAPARE - Transportation Answer Date Re corded In the past 12 months, has l ack of transportation kept you from medical appointments or from getting medications? No 02/07 In the past 12 months, has l ack of transportation kept you from meetings, work, or from getting things needed for daily living? No 02/18/2023 Housing Stability Vital Sign Answer Tj e Recorded In the last 12 months, was t here a time when you were not able to pay the mortgage or rent on time? Yes 02/18/2023 In the last 12 months, how many places have you lived? 2 02/18/2023 In the last 12 months, was t here a time when you did not have a steady place to sleep or slept in a fpc (including now)? Yes 02/18/2023 Personal Safety Answer Date Recorded Have you ever been in or are you currently in a harmful physical or emotional relationship or is someone making you feel afraid or unsafe? Denies 07/10/2024 Comments Unknown Sex and Gender Information Value Date Recorded Sex Assigned at Not on file Legal Sex Female 7:07 PM UI ARCHITECT Gender Identity Not on file Sexual Orientation Not on file Last Filed Vital Signs Vital Sign Reading Time Taken Comments Blood Pressure 118/92 07/10/2024 8:02 PM CDT Pulse 82 07/10/2024 8:02 PM CDT Temperature 36.9 C (98.5 F) 07/10/2024 11:21 AM CDT Respiratory Rate 16 07/10/2024 8:02 PM CDT Oxygen Saturation 100% 07/10/2024 8:02 PM CDT Inhaled Oxygen Concentration - - Weight 94.3 kg (208 lb) 02/17/2023 12:42 PM UI ARCHITECT Height 167.6 cm (5' 6) 07/10/2024 11:21 AM CDT Body Mass Index 32.58 02/17/2023 3:47 AM UI ARCHITECT Plan of Treatment Not on file Procedures Procedure Name Priority Date/Time Associated Diagnosis Comments CT ABDOMEN PELVIS W CONTRAST ED 07/10/2024 6:13 PM CDT DRUGS OF ABUSE SCREEN, URINE WITHOUT CONFIRMATION STAT 07/10/2024 4:42 PM CDT SEPSIS LACTATE WITH REFLEX STAT 07/10/2024 3:23 PM CDT TROPONIN T HIGH-SENSITIVITY 2-HOUR Timed 07/10/2024 3:23 PM CDT PHOSPHORUS STAT 07/10/2024 1:49 PM CDT ETHANOL STAT 07/10/2024 1:49 PM CDT TROPONIN T HIGH-SENSITIVITY SERIES (BASELINE, 2HR, 4HR, 6HR) STAT 07/10/2024 1:49 PM CDT DIFFERENTIAL AUTO STAT 07/10/2024 1:0 7 PM CDT CBC WITH AUTO DIFFERENTIAL STAT 07/10/2024 1:07 PM CDT URINALYSIS, MICROSCOPIC ONLY STAT 07/10/2024 12:51 PM CDT URINALYSIS AND REFLEX TO MICROSCOPIC AND CULTURE STAT 07/10/2024 12:51 PM CDT POCT HCG, URINE Routine 07/10/2024 12:50 PM CDT EGFR STAT 07/10/2024 12:39 PM CDT MAGNESIUM STAT 07/10/2024 12:39 PM CDT LIPASE STAT 07/10/2024 12:39 PM CDT COMPREHENSIVE METABOLIC PANEL STAT 07/10/2024 12:39 PM CDT ECG 12-LEAD STAT 07/10/2024 12:03 PM CDT from Last 3 Months Results * CT Abdomen Pelvis W Contrast (07/10/2024 6:13 PM CDT) Anatomical Region Laterality Modality Body N/A Computed Tomogra phy 07/10/2024 6:46 PM CDT Narrative 07/10/2024 6:51 PM CDT EXAM DESCRIPTION: CT ABDOMEN PELVIS W CONTRAST REASON FOR STUDY: epigastric pain, vomiting, constipation Pt arrives today for evaluation of abdominal pain for the past 2 days. Pt reports being followed at a methadone clinic daily, however hasn't gone in the past 2 days. Pt tearful during triage, rapid pressured speech during triage. Pt reports in addition to the methadone daily she uses fentanyl daily, last dose today prior to arrival. Hx: hep c TECHNIQUE: CT scan of the abdomen and pelvis performed with intravenous and without oral contrast using helical scanning technique with dynamic intravenous contrast injection. Reconstructed coronal and sagittal MPR images reviewed. All images stored on PACS. Automated exposure control was used as a dose optimization technique for this examination. CONTRAST TYPE/DOSE: 90mL of IOVERSOL 350 MG IODINE/ML INTRAVENOUS SYRINGE injected via intravenous COMPARISON: 02/17/2023 FINDINGS: LOWER CHEST: No significant pulmonary abnormalities. No effusion. LIVER: Normal size. No identified cystic or solid masses. GALLBLADDER: No stones identified. No wall thickening or inflammatory changes. BILE DUCTS: No intrahepatic or extrahepatic ductal dilatation. SPLEEN: Normal size. No focal lesions. PANCREAS: No identified cystic or solid masses. No significant calcifications. No adjacent inflammation or peripancreatic fluid collections. Pancreatic duct not dilated. ADRENALS: Normal. KIDNEYS/URINARY TRACT: No identified significant cystic or solid masses. No visualized stones. No hydronephrosis or hydroureter. Symmetric enhancement. Urinary bladder is unremarkable. GI: No dilated bowel loops. No obvious wall thickening. Normal appendix. No significant diverticular disease. PERITONEUM: No ascites or free air. RETROPERITONEUM: No mass or adenopathy. REPRODUCTIVE: No significant abnormality. VASCULATURE: No abdominal aortic aneurysm. MUSCULOSKELETAL: Multilevel degenerative changes are present without fracture. No concerning lesions are present. 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 OTHER: Small periumbilical hernia containing only fat. IMPRESSION: No acute finding. THIS IS AN ELECTRONICALLY VERIFIED FINAL REPORT 07/10/2024 6:51 PM - Electronically signed by Nicanor Burdick M.D. KT T: Report ID: [id number] Reading Location: [place] [address] Procedure Note Nicanor Burdick MD - 07/10/2024 EXAM DESCRIPTION: CT ABDOMEN PELVIS W CONTRAST REASON FOR STUDY: epigastric pain, vomiting, constipation Pt arrives today for evaluation of abdominal pain for the past 2 days.Pt reports being followed at a methadone clinic daily, however hasn't gone inthe past 2 days. Pt tearful during triage, rapid pressured speech duringtriage. Pt reports in addition to the methadone daily she uses fentanyl daily,last dose today prior to arrival. Hx: hep c TECHNIQUE: CT scan of the abdomen and pelvis performed with intravenousand without oral contrast using helical scanning technique with dynamic intravenous contrast injection. Reconstructed coronal and sagittal MPRimages reviewed. All images stored on PACS. Automated exposure control was usedas a dose optimization technique for this examination. CONTRAST TYPE/DOSE: 90mL of IOVERSOL 350 MG IODINE/ML INTRAVENOUSSYRINGE injected via intravenous COMPARISON: 02/17/2023 FINDINGS: LOWER CHEST: No significant pulmonary abnormalities. Noeffusion. LIVER: Normal size. No identified cystic or solid masses. GALLBLADDER: No stones identified. No wall thickening or inflammatory changes. BILE DUCTS: No intrahepatic or extrahepatic ductal dilatation. SPLEEN: Normal size. No focal lesions. PANCREAS: No identified cystic or solid masses. No significant calcifications. No adjacent inflammation or peripancreatic fluidcollections. Pancreatic duct not dilated. ADRENALS: Normal. KIDNEYS/URINARY TRACT: No identified significant cystic or solid masses.No visualized stones. No hydronephrosis or hydroureter. Symmetricenhancement. Urinary bladder is unremarkable. GI: No dilated bowel loops. No obvious wall thickening. Normalappendix. No significant diverticular disease. PERITONEUM: No ascites or free air. RETROPERITONEUM: No mass or adenopathy. REPRODUCTIVE: No significant abnormality. VASCULATURE: No abdominal aortic aneurysm. MUSCULOSKELETAL: Multilevel degenerative changes are present without fracture. No concerning lesions are present. Grade 1 anterolisthesis L5on S1 due to bilateral pars defects at L5. OTHER: Small periumbilical hernia containing only fat. IMPRESSION: No acute finding. THIS IS AN ELECTRONICALLY VERIFIED FINAL REPORT 07/10/2024 6:51 PM - Electronically signed by Nicanor Burdick M.D. KT T: Report ID: [id number] Reading Location: [place] [address] us Harish Turner MD IMG CT PROCEDURES Final Re sult * (ABNORMAL) Drugs of Abuse Screen, Urine without Confirmation (07/10/2024 4:42 PM CDT) Amphetamine, ur Screen Positive, presumptive (A) CutOff 500ng/mL Comment: Interpretive Data - Amphetamines: Samples containing greater than 500 ng/mL d-methamphetamine or other cross-reacting amphetamine compounds are reported as positive. Amphetamine immunoassays are subject to significant false positive rates due to cross-reactivity of non-amphetamine drugs. Confirmatory testing required for definitive results. Current Interpretive Data was last reviewed 2022. Barbiturates, ur Not Detected CutOff 200ng/mL [facility] Comment: Interpretive Data - Barbiturates: Samples containing greater than 200 ng/mL secobarbital or other cross-reacting barbiturate compounds are reported as positive. False positive and false negative results are possible. Confirmatory testing required for definitive results. Current Interpretive Data was last reviewed 2022. Benzodiazepines, ur Screen Positive, presumptive (A) CutOff 100ng/mL [facility] Comment: Interpretive Data - Benzodiazepines: Samples containing greater than 100 ng/mL nordiazepam or other cross-reacting compounds are reported as positive. False positive and false negative results are possible. Confirmatory testing required for definitive results. Current Interpretive Data was last reviewed 2022. Cannabinoids, ur Screen Positive, presumptive (A) CutOff 50 ng/mL [facility] Comment: Interpretive Data - Cannabinoids: Samples containing greater than 50 ng/mL delta-9 THC -COOH or other cross- reacting compounds are reported as positive. False positive and false negative results are possible. Confirmatory testing required for definitive results. Current Interpretive Data was last reviewed 2022. Cocaine, ur Not Detected CutOff 150ng/mL [facility] Comment: Interpretive Data - Cocaine: Samples containing greater than 150 ng/mL benzoylecgonine or other cross- reacting compounds are reported as positive. False positive and false negative results are possible. Confirmatory testing required for definitive results. Current Interpretive Data was last reviewed 2022. Fentanyl, Ur Screen Positive, presumptive (A) CutOff 5 ng/mL [facility] Comment: Interpretive Data - Fentanyl: Samples containing greater than 5 ng/mL norfentanyl, fentanyl, or other cross-reacting fentanyl compounds are reported as positive. False positive and false negative results are possible. Confirmatory testing required for definitive results. Current Interpretive Data was last reviewed 2023. Methadone, ur Screen Positive, presumptive (A) CutOff 300ng/mL [facility] Comment: Interpretive Data - Methadone: Samples containing greater than 300 ng/mL d,l-methadone or other cross-reacting compounds are reported as positive. False positive and false negative results are possible. Confirmatory testing required for definitive results. Current Interpretive Data was last reviewed 2022. Opiates, ur Not Detected CutOff 300ng/mL [facility] Comment: Interpretive Data - Opiates: Samples containing greater than 300 ng/mL morphine or other cross-reacting compounds are reported as positive. False positive and false negative results are possible. Confirmatory testing required for definitive results. Current Interpretive Data was last reviewed 2022. Oxycodone, ur Not Detected CutOff 100ng/mL [facility] Comment: Interpretive Data - Oxycodone: Samples containing greater than 100 ng/mL oxycodone or other cross-reacting compounds are reported as positive. False positive and false negative results are possible. Confirmatory testing required for definitive results. Current Interpretive Data was last reviewed 2022. Phencyclidine, ur Not Detected CutOff 25 ng/mL [facility] Comment: Interpretive Data - Phencyclidine: Samples containing greater than 25 ng/mL phencyclidine or other cross-reacting compounds are reported as positive. False positive and false negative results are possible. Confirmatory testing required for definitive results. Current Interpretive Data was last reviewed 2022. Urine Creatinine 170 mg/dL [facility] Comment: Interpretive Data Urine Creatinine: < 10 mg/dL is extremely dilute = or > 10 but < 20 mg/dL is dilute = or > 20 mg/dL is normal Current Interpretive Data was last revised on 2017. Urine 07/10/2024 4:42 PM CDT 07/10/2024 4:45 PM CDT Narrative [facility] - 07/10/2024 5:09 PM CDT Drug of Abuse screening is performed by immunoassay for medical purposes only. This is not to be used for Pain Management purposes. Harish Turner MD LAB URINE ORDERABLES Final Result Performing Organization Address [facility] de Phone Number [address] [address] * (ABNORMAL) Troponin T high-sensitivity 2-hour (07/10/2024 3:23 PM CDT) Pathologist [facility] Trop T hs 38(H) <=14 ng/L Comment: Interpretive Data For further hscTnT resources including the diagnostic algorithm and an aid in interpretation, copy and paste this link: https://nrl.testcatalog.org/show/hsTrop Current Interpretive Data last revised 2020. Trop T hs delta 0 ng/L [facility] Trop T hs interp Insignificant [facility] Blood 07/10/2024 3:23 PM CDT 07/10/2024 3:26 PM CDT Nicanor Mason DO LAB BLOOD ORDERABLES Final Result Performing Organization Address [facility] Co de Phone Number [address] [address] * Sepsis Lactate w/ Reflex (07/10/2024 3:23 PM CDT) [facility] Sepsis Lactate 1.0 0.7 - 2.0 mmol/L Blood 07/10/2024 3:23 PM CDT 07/10/2024 3:26 PM CDT Harish Turner MD LAB BLOOD ORDERABLES Final Result Performing Organization Address [facility] Co de Phone Number [address] [place] [address] * (ABNORMAL) Troponin T high-sensitivity series (baseline, 2hr, 4hr, 6hr) (07/10/2024 1:49 PM CDT) Pathologist [facility] Trop T hs 38(H) <=14 ng/L Comment: Interpretive Data For further hscTnT resources including the diagnostic algorithm and an aid in interpretation, copy and paste this link: https://nrl.testcatalog.org/show/hsTrop Current Interpretive Data last revised 2020. Blood 07/10/2024 1:49 PM CDT 07/10/2024 1:51 PM CDT Harish Turner MD LAB BLOOD ORDERABLES Final Result Performing Organization Address [facility]/ZIP Co de Phone Number [facility] [address] [place] [address] * (ABNORMAL) Phosphorus (07/10/2024 1:49 PM CDT) Phosphorus, pl 1.3(C) 2.3 - 4.5 mg/dL Comment:Critical Result call ed to and read back by Juan [email or web address], DATE: 2024-07-10 15:30:27 BY: [email or web address] Blood 07/10/2024 1:49 PM CDT 07/10/2024 1:51 PM CDT Harish Turner MD LAB BLOOD ORDERABLES Final Result Performing Organization Address [facility] Co de Phone Number [address] [place] [address] * Ethanol (07/10/2024 1:49 PM CDT) Ethanol <10 <=10 mg/dL Comment: Interpretive Data Legal limit of intoxication > or = 80 mg/dL Levels > or = 400 mg/dL are potentially TOXIC. Current interpretive data was last revised on 2018. Blood 07/10/2024 1:49 PM CDT 07/10/2024 1:51 PM CDT Harish Turner MD LAB BLOOD ORDERABLES Final Result Performing Organization Address [facility]/ZIP Co de Phone Number [address] [place] [address] * Differential, auto (07/10/2024 1:07 PM CDT) Pathologist [facility] Neutrophil abs 5.98 1.50 - 6.50 K/cumm Imm gran abs 0.03 0.00 - 0.10 K/cumm [facility] Lymphocyte abs 1.62 0.80 - 3.30 K/cumm [facility] Monocyte abs 0.75 0.20 - 0.80 K/cumm [facility] Eosinophil abs 0.00 0.00 - 0.50 K/cumm [facility] Basophil abs 0.02 0.00 - 0.10 K/cumm [facility] Neutrophil pct 71.2 % [facility] Comment: Interpretive Data Percent cell count reference ranges are not reported, since discordance with absolute values may lead to misinterpretation of CBC data. Current Interpretive Data was last revised on 2017. Imm gran pct 0.4 % [facility] Comment: Interpretive Data Percent cell count reference ranges are not reported, since discordance with absolute values may lead to misinterpretation of CBC data. Current Interpretive Data was last revised on 2017. Lymphocyte pct 19.3 % [facility] Comment: Interpretive Data Percent cell count reference ranges are not reported, since discordance with absolute values may lead to misinterpretation of CBC data. Current Interpretive Data was last revised on 2017. Monocyte pct 8.9 % [facility] Comment: Interpretive Data Percent cell count reference ranges are not reported, since discordance with absolute values may lead to misinterpretation of CBC data. Current Interpretive Data was last revised on 2017. Eosinophil pct 0.0 % [facility] Comment: Interpretive Data Percent cell count reference ranges are not reported, since discordance with absolute values may lead to misinterpretation of CBC data. Current Interpretive Data was last revised on 2017. Basophil pct 0.2 % [facility] Comment: Interpretive Data Percent cell count reference ranges are not reported, since discordance with absolute values may lead to misinterpretation of CBC data. Current Interpretive Data was last revised on 2017. Blood 07/10/2024 1:07 PM CDT 07/10/2024 1:22 PM CDT Harish Turner MD LAB BLOOD ORDERABLES Final Result Performing Organization Address [facility] de Phone Number [facility] [address] [place] [address] * (ABNORMAL) CBC with auto differential (07/10/2024 1:07 PM CDT) Pathologist [facility] WBC 8.40 3.80 - 9.90 K/cumm Hgb 12.8 11.9 - 15.5 g/dL [facility] Hct 38.1 35.6 - 45.5 % [facility] Plt 207 150 - 400 K/cumm [facility] MPV 11.8 9.1 - 12.3 fL [facility] RBC 4.10 3.90 - 5.20 M/cumm [facility] MCV 92.9 81.3 - 96.4 fL [facility] MCH 31.2 27.1 - 33.3 pg [facility] MCHC 33.6 32.3 - 35.7 g/dL [facility] RDW CV 15.4(H) 11.1 - 14.9 % [facility] RDW SD 52.2(H) 35.7 - 48.1 fL [facility] NRBC abs 0.00 0.00 - 0.01 K/cumm [facility] Blood 07/10/2024 1:07 PM CDT 07/10/2024 1:22 PM CDT Harish Turner MD LAB BLOOD ORDERABLES Final Result Performing Organization Address [facility] de Phone Number [place] [phone] [place] [address] * (ABNORMAL) Urinalysis reflex to microscopic and culture Urine (07/10/2024 12:51 PM CDT) Color, ur Yellow Yellow Clarity, ur Clear Clear [facility] Specific gravity, ur 1.025 1.003 - 1.030 [facility] pH, urine 6.0 [facility] Comment: Interpretive Data U rine pH is affected by diet, medications, systemic acid-base disturbances, and renal tubular function. pH may affect urinary stone formation. For example, urine pH below 6.0 may help reduce the tendency for calcium phosphate stones and pH greater than 6.0 may reduce the tendency for uric acid stone formation. Source: [facility] Current Interpretive Data was last revised on 2017 Protein, ur ql Negative Negative [facility] Glucose, ur ql Negative Negative [facility] Ketones, ur 1+(A) Negative [facility] Bilirubin, ur Negative Negative [facility] Blood, ur Negative Negative [facility] Urobilinogen, ur <2.0 <2.0 mg/dL [facility] Nitrite, ur Negative Negative [facility] Leukocyte esterase, ur 1+(A) Negative [facility] UA reflex comment Reflex to microscopic UA will be performed. [facility] Urine 07/10/2024 12:5 1 PM CDT 07/10/2024 12:55 PM CDT Harish Turner MD LAB MICROBIOLOGY - GENERAL ORDERABLES Final Result Performing Organization Address [facility] Co de Phone Number [address] [employer] [place] [address] * (ABNORMAL) Urinalysis, microscopic only (07/10/2024 12:51 PM CDT) WBC, ur 0-5 0 - 5 /HPF RBC, ur 0-2 0 - 2 /HPF [facility] Epithelial cells, squamous, ur 1-5 0 - 5 /HPF [facility] Bacteria, ur 1+(A) [facility] Mucous, ur Present(A) [facility] Culture Reflex Comment Reflex conditions for urine culture (WBC >10) not met. [facility] Urine 07/10/2024 12:5 1 PM CDT 07/10/2024 12:55 PM CDT Harish Turner MD LAB URINE ORDERABLES Final Result Performing Organization Address [facility] Co de Phone Number [address] [place] [address] * POCT hCG, urine (07/10/2024 12:50 PM CDT) HCG, ur, POC Negative Negative Lot Number [id number] QC Backgroud Clear Acceptable QC Control Line Acceptable Urine 07/10/2024 12:5 0 PM CDT Harish Turner MD POINT OF CARE TEST ORDERAB LES Final Result * eGFR (07/10/2024 12:39 PM CDT) eGFR >90 >=60 mL/min/1. 73 m2 Comment: Interpretive Data Reference Interval Normal >/= 90 mL/min/1.73m2 Mildly decreased* 60 - 89 mL/min/1.73m2 Mildly to moderately decreased 45 - 59 mL/min/1.73m2 Moderately to severely decreased 30 - 44 mL/min/1.73m2 Severely decreased 15 - 29 mL/min/1.73m2 Kidney Failure < 15 mL/min/1.73m2 *Relative to young adult level Estimated glomerular filtration rate is determined by the 2020 CKD-EPI equation recommended by the National Kid[employer] (A Unifying Approach to GFR Estimation: Recommendations of the NKF-ASK Task Force on Reassessing the Inclusion of Race in Diagnosing Kidney Disease, JASN 2020). The CKD-EPI equation should not be used for patients with unstable renal function and has not been validated in children and those over 70. Current interpretive data was last reviewed 2021. Blood 07/10/2024 12:3 9 PM CDT 07/10/2024 12:42 PM CDT Harish Turner MD LAB BLOOD ORDERABLES Final Result [address] [facility] Department of Laboratories [place], [place] [id number] * Magnesium (07/10/2024 12:39 PM CDT) Magnesium 1.9 1.4 - 2.5 mg/dL Blood 07/10/2024 12:3 9 PM CDT 07/10/2024 12:42 PM CDT us Harish Turner MD LAB BLOOD ORDERABLES Final Result Performing Organization Address [facility] Co de Phone Number BARBIE [address] [address] * Lipase (07/10/2024 12:39 PM CDT) [facility] Lipase 31 10 - 99 Units/L Comment:Hemolyzed; result mi ght be falsely decreased Blood Venous blood specimen / Unknown 07/10/2024 12:39 PM CDT 07/10/2024 12:42 PM CDT Harish Turner MD LAB BLOOD ORDERABLES Final Result Performing Organization Address [facility] de Phone Number BARBIE [address] [address] * (ABNORMAL) Comprehensive metabolic panel (07/10/2024 12:39 PM CDT) [facility] Sodium 137 135 - 145 mmol/L Potassium, pl 4.5 3.3 - 4.9 mmol/L [facility] Comment:Hemolyzed; Potassium value may be falsely elevated by as much as 1.0 mmol/L. Suggest redraw and reanalysis. Chloride 106 97 - 110 mmol/L [facility] CO2 17(L) 22 - 32 mmol/L [facility] Anion gap 14 2 - 15 mmol/L [facility] BUN 13 6 - 25 mg/dL [facility] Creatinine 0.59(L) 0.60 - 1.10 mg/dL [facility] Glucose 134 70 - 199 mg/dL [facility] Comment: Interpretive Data Fasting glucose >/= 126 mg/dl is diagnostic for diabetes. Fasting is defined as no caloric intake for at least 8 hours. Fasting glucose between 100 mg/dl to 125 mg/dl is diagnostic of prediabetes. In a patient with classic symptoms of hyperglycemia or hyperglycemic crisis, a random glucose >/= 200 mg/dl is diagnostic for diabetes. In the absence of unequivocal hyperglycemia, results should be confirmed by repeat testing. The classification and Diagnosis of Diabetes Diabetes Care 2021; 46: S19-S40. Current interpretive data was last revised 2022. Calcium 8.0(L) 8.5 - 10.3 mg/dL [facility] Bilirubin, total 0.6 0.1 - 1.2 mg/dL [facility] Protein, pl 7.4 6.5 - 8.5 g/dL [facility] Albumin 4.0 3.5 - 5.0 g/dL [facility] Alk phos 69 40 - 130 Units/L [facility] ALT See Comment [facility] Comment:Credited; Hemolyzed Specimen AST See Comment [facility] Comment:Credited; Hemolyzed Specimen Blood 07/10/2024 12:3 9 PM CDT 07/10/2024 12:42 PM CDT us Harish Turner MD LAB BLOOD ORDERABLES Final Result Performing Organization Address [facility] de Phone Number [facility] [address] [facility] Department [place] [address] * ECG 12 lead (07/10/2024 12:03 PM CDT) Pathologist [facility] Ventricular Rate EKG/Min 91 BPM [facility] Atrial Rate 91 BPM [facility] WA-Interval (MSEC) 124 ms [facility] QRS-Interval (MSEC) 80 ms [facility] QT-Interval (MSEC) 420 ms [facility] QTc 516 ms [facility] P [place] 49 degrees [facility] R [place] 52 degrees [facility] T [place] 27 degrees [facility] Diagnosis Normal sinus rhythm Prolonged QT T-wave changes No previous ECGs available Confirmed by SULTAN MIJARES M.D. ([id number]) on 07/12/2024 4:18:46 PM [facility] 07/10/2024 12:0 3 PM CDT 07/12/2024 4:18 PM CDT us Harish Turner MD ECG ORDERABLES Final Resu lt Performing Organization Address [facility] Co de Phone Number [facility] from Last 3 Months Insurance Advance Directives For more information, please contact: [phone] * Full Code (Latest Code Status on File) Date Activated Date Inactivated Comments 02/17/2023 9:59 AM 02/20/2023 7:42 PM Care Teams Piercing Artist Relationship Specialty Start Date End Date Roxann Boyd NP [address] [address] PCP - General Family Medicine 02/18/24
--- OUTSIDE RECORDS SUMMARY | 2024-08-09 03:51 | XMS_ITS | Clinical Summary ---
Author Organization [facility] at the [facility] Address [address] [place] [address] Care Team Providers Care Head Teacher Name Role Phone Roxann Boyd NP Primary Care Provider [phone] Allergies No known active allergies Medications rosuvastatin [...] CDT - 07/10/2024 8:23 PM CDT Emergency [address] [address] Harish Turner MD Epigastric pain (Primary Dx); Nausea and vomiting, unspecified vomiting type; Constipation, unspecified constipation type; Polysubstance abuse (HCC); Hypophosphatemia Discharge Disposition: Discharge to home or self care from Last 3 Months Surgical History Surgery Date Site/Laterality Comments TONSILLECTOMY KNEE CARTILAGE SURGERY Medical History Medical History Date Comments Hepatitis C Family History Medical History Relation Name Comments Cancer Mother Heart disease Mother Hypertension Mother Cancer Paternal Grandmother Relation Name Status Comments Mother Paternal Grandmother Social History Tobacco Use Types Packs/Day Years Used Date Smoking Tobacco: Every Day Cigarettes Smokeless Tobacco: Never [facility] Utilities Answer Date Recorded In the past 12 months has th e electric, gas, oil, or water [employer] threatened to shut off services in your [...] week 02/18/2023 How often do you attend [facility] or quaker services? Never 02/18/2023 Do you belong to any clubs o r organizations such as zoroastrian groups, unions, fraternal or athletic groups, or [...] place to sleep or slept in a correction (including now)? Yes 02/18/2023 Personal Safety Answer Date Recorded Have you ever been in or are you currently in a harmful physical or emotional relationship or is someone making you feel afraid or unsafe? Denies 07/10/2024 Comments Unknown Sex and Gender Information Value Date Recorded Sex Assigned at Not on file Legal Sex Female 7:07 PM SILK SCREEN LAYOUT DRAFTER Gender Identity Not on file Sexual Orientation Not on file Obstetrics History Last Filed Vital Signs Vital Sign Reading Time Taken Comments Blood Pressure 118/92 07/10/2024 8:02 PM CDT Pulse 82 07/10/2024 8:02 PM CDT Temperature 36.9 C (98.5 F) 07/10/2024 11:21 AM CDT Respiratory Rate 16 07/10/2024 8:02 PM CDT Oxygen Saturation 100% 07/10/2024 8:02 PM CDT Inhaled Oxygen Concentration - - Weight 94.3 kg (208 lb) 02/17/2023 12:42 PM SILK SCREEN LAYOUT DRAFTER Height 167.6 cm (5' 6) 07/10/2024 11:21 AM CDT Body Mass Index 32.58 02/17/2023 3:47 AM SILK SCREEN LAYOUT DRAFTER Plan of Treatment Health Maintenance Due Date Last Done Comments Breast Cancer Screening-Mammogram 1979 Cervical Cancer Screening 1979 Colon Cancer Screening-Colonoscopy 1979 Depression Screening 1979 Varicella Vaccines (1 of 2 - 13+ 2-dose series) 07/07/1992 Hepatitis B Screening 07/07/1997 Regular Well Visit/Exam 18-64 07/07/1997 Pneumococcal vaccine <65 (1 of 2 - PCV) 07/07/1998 Influenza Vaccine (Season Ended) 2024 01/28/2020, 12/07/2008 DTaP/Tdap/Td Vaccine (3 - Td or Tdap) 04/16/2030 04/16/2020, 03/06/2009 Hepatitis C Screening Completed 12/02/2023 HPV Vaccines Aged Out No longer eligi ble based on patient's age to complete this [...] Nicanor Burdick M.D. KT T: Report ID: [id number] Reading Location: [id number] Procedure Note Nicanor Burdick MD - 07/10/2024 [...] Nicanor Burdick M.D. KT T: Report ID: [id number] Reading Location: [place] [address] Harish Turner MD IMG CT PROCEDURES Final [...] 2022. Barbiturates, ur Not Detected CutOff 200ng/mL [facility] Comment: Interpretive Data - Barbiturates: Samples containing greater than 200 ng/mL secobarbital or other cross-reacting barbiturate compounds are reported as positive. False positive and false negative results are possible. Confirmatory testing required for definitive results. Current Interpretive Data was last reviewed 2022. Benzodiazepines, ur Screen Positive, presumptive (A) CutOff 100ng/mL [facility] Comment: Interpretive Data - Benzodiazepines: Samples containing greater than 100 ng/mL nordiazepam or other cross-reacting compounds are reported as positive. False positive and false negative results are possible. Confirmatory testing required for definitive results. Current Interpretive Data was last reviewed 2022. Cannabinoids, ur Screen Positive, presumptive (A) CutOff 50 ng/mL [facility] Comment: Interpretive Data - Cannabinoids: Samples containing greater than 50 ng/mL delta-9 THC -COOH or other cross- reacting compounds are reported as positive. False positive and false negative results are possible. Confirmatory testing required for definitive results. Current Interpretive Data was last reviewed 2022. Cocaine, ur Not Detected CutOff 150ng/mL [facility] Comment: Interpretive Data - Cocaine: Samples containing greater than 150 ng/mL benzoylecgonine or other cross- reacting compounds are reported as positive. False positive and false negative results are possible. Confirmatory testing required for definitive results. Current Interpretive Data was last reviewed 2022. Fentanyl, Ur Screen Positive, presumptive (A) CutOff 5 ng/mL [facility] Comment: Interpretive Data - Fentanyl: Samples containing greater than 5 ng/mL norfentanyl, fentanyl, or other cross-reacting fentanyl compounds are reported as positive. False positive and false negative results are possible. Confirmatory testing required for definitive results. Current Interpretive Data was last reviewed 2023. Methadone, ur Screen Positive, presumptive (A) CutOff 300ng/mL [facility] Comment: Interpretive Data - Methadone: Samples containing greater than 300 ng/mL d,l-methadone or other cross-reacting compounds are reported as positive. False positive and false negative results are possible. Confirmatory testing required for definitive results. Current Interpretive Data was last reviewed 2022. Opiates, ur Not Detected CutOff 300ng/mL [facility] Comment: Interpretive Data - Opiates: Samples containing greater than 300 ng/mL morphine or other cross-reacting compounds are reported as positive. False positive and false negative results are possible. Confirmatory testing required for definitive results. Current Interpretive Data was last reviewed 2022. Oxycodone, ur Not Detected CutOff 100ng/mL [facility] Comment: Interpretive Data - Oxycodone: Samples containing [...] URINE ORDERABLES Final Result Performing Organization Address [facility] [place]/[facility] Co de Phone Number [address] [place] [address] * (ABNORMAL) Troponin T high-sensitivity 2-hour (07/10/2024 3:23 PM CDT) Trop T hs 38(H) <=14 ng/L Comment: Interpretive Data For further hscTnT resources including the diagnostic algorithm and an aid in interpretation, copy and paste this link: https://nrl.testcatalog.org/show/hsTrop Current Interpretive Data last revised 2020. Trop T hs delta 0 ng/L [facility] Trop T hs interp Insignificant [facility] Blood 07/10/2024 3:23 PM CDT 07/10/2024 3:26 PM CDT Nicanor Mason DO LAB BLOOD ORDERABLES Final Result Performing Organization Address City/[facility]/ZIP Co de Phone Number [facility] [address] [facility] [place] [address] * Sepsis Lactate w/ Reflex (07/10/2024 3:23 PM CDT) [facility] Sepsis Lactate 1.0 0.7 - 2.0 mmol/L Blood 07/10/2024 3:23 PM CDT 07/10/2024 3:26 PM CDT Harish Turner MD LAB BLOOD ORDERABLES Final Result Performing Organization Address [facility] de Phone Number BARBIE [address] [address] * (ABNORMAL) Troponin T high-sensitivity series (baseline, 2hr, 4hr, 6hr) (07/10/2024 1:49 PM CDT) [facility] Trop T hs 38(H) <=14 ng/L Comment: Interpretive Data For further hscTnT resources including the diagnostic algorithm and an aid in interpretation, copy and paste this link: https://nrl.testcatalog.org/show/hsTrop Current Interpretive Data last revised 2020. Blood 07/10/2024 1:49 PM CDT 07/10/2024 1:51 PM CDT Harish Turner MD LAB BLOOD ORDERABLES Final Result Performing Organization Address [facility] de Phone Number [address] [address] * (ABNORMAL) Phosphorus (07/10/2024 1:49 PM CDT) [facility] Phosphorus, pl 1.3(C) 2.3 - 4.5 mg/dL Comment:Critical Result call ed to and read back by Juan [email or web address], DATE: 2024-07-10 15:30:27 BY: [email or web address] Blood 07/10/2024 1:49 PM CDT 07/10/2024 1:51 PM CDT Harish Tunrer MD LAB BLOOD ORDERABLES Final Result Performing Organization Address [facility] Co de Phone Number [address] [address] * Ethanol (07/10/2024 1:49 PM CDT) [facility] Ethanol <10 <=10 mg/dL Comment: Interpretive Data Legal limit of intoxication > or = 80 mg/dL Levels > or = 400 mg/dL are potentially TOXIC. Current interpretive data was last revised on 2018. Blood 07/10/2024 1:49 PM CDT 07/10/2024 1:51 PM CDT Harish Turner MD LAB BLOOD ORDERABLES Final Result Performing Organization Address [facility] de Phone Number [address] [address] * Differential, auto (07/10/2024 1:07 PM CDT) [facility] Neutrophil abs 5.98 1.50 - 6.50 K/cumm Imm gran abs 0.03 0.00 - 0.10 K/cumm [facility] Lymphocyte abs 1.62 0.80 - 3.30 K/cumm [facility] Monocyte abs 0.75 0.20 - 0.80 K/cumm [facility] Eosinophil abs 0.00 0.00 - 0.50 K/cumm [facility] Basophil abs 0.02 0.00 - 0.10 K/cumm [facility] Neutrophil pct 71.2 % [facility] Comment: Interpretive Data Percent cell count reference ranges are not reported, since discordance with absolute values may lead to misinterpretation of CBC data. Current Interpretive Data was last revised on 2017. Imm gran pct 0.4 % [facility] Comment: Interpretive Data Percent cell count reference ranges are not reported, since discordance with absolute values may lead to misinterpretation of CBC data. Current Interpretive Data was last revised on 2017. Lymphocyte pct 19.3 % [facility] Comment: Interpretive Data Percent cell count reference ranges are not reported, since discordance with absolute values may lead to misinterpretation of CBC data. Current Interpretive Data was last revised on 2017. Monocyte pct 8.9 % [facility] Comment: Interpretive Data Percent cell count reference ranges are not reported, since discordance with absolute values may lead to misinterpretation of CBC data. Current Interpretive Data was last revised on 2017. Eosinophil pct 0.0 % [facility] Comment: Interpretive Data Percent cell count reference ranges are not reported, since discordance with absolute values may lead to misinterpretation of CBC data. Current Interpretive Data was last revised on 2017. Basophil pct 0.2 % [facility] Comment: Interpretive Data Percent cell count reference ranges are not reported, since discordance with absolute values may lead to misinterpretation of CBC data. Current Interpretive Data was last revised on 2017. Blood 07/10/2024 1:07 PM CDT 07/10/2024 1:22 PM CDT Harish Turner MD LAB BLOOD ORDERABLES Final Result [place] [address] [facility] Department of Laboratories [place], [place] [id number] * (ABNORMAL) CBC with auto differential (07/10/2024 1:07 PM CDT) WBC 8.40 3.80 - 9.90 K/cumm Hgb 12.8 11.9 - 15.5 g/dL [facility] Hct 38.1 35.6 - 45.5 % [facility] Plt 207 150 - 400 K/cumm [facility] MPV 11.8 9.1 - 12.3 fL [facility] RBC 4.10 3.90 - 5.20 M/cumm [facility] MCV 92.9 81.3 - 96.4 fL [facility] MCH 31.2 27.1 - 33.3 pg [facility] MCHC 33.6 32.3 - 35.7 g/dL [facility] RDW CV 15.4(H) 11.1 - 14.9 % [facility] RDW SD 52.2(H) 35.7 - 48.1 fL [facility] NRBC abs 0.00 0.00 - 0.01 K/cumm [facility] Blood 07/10/2024 1:07 PM CDT 07/10/2024 1:22 PM CDT Harish Turner MD LAB BLOOD ORDERABLES Final Result Performing Organization Address [facility] de Phone Number [facility] [address] [address] * (ABNORMAL) Urinalysis reflex to microscopic and culture Urine (07/10/2024 12:51 PM CDT) Color, ur Yellow Yellow Clarity, ur Clear Clear [facility] Specific gravity, ur 1.025 1.003 - 1.030 [facility] pH, urine 6.0 [facility] Comment: Interpretive Data U rine pH is affected by diet, medications, systemic acid-base disturbances, and renal tubular function. pH may affect urinary stone formation. For example, urine pH below 6.0 may help reduce the tendency for calcium phosphate stones and pH greater than 6.0 may reduce the tendency for uric acid stone formation. Source: [facility] Current Interpretive Data was last revised on 2017 Protein, ur ql Negative Negative [facility] Glucose, ur ql Negative Negative [facility] Ketones, ur 1+(A) Negative [facility] Bilirubin, ur Negative Negative [facility] Blood, ur Negative Negative [facility] Urobilinogen, ur <2.0 <2.0 mg/dL [facility] Nitrite, ur Negative Negative [facility] Leukocyte esterase, ur 1+(A) Negative [facility] UA reflex comment Reflex to microscopic UA will be performed. [facility] Urine 07/10/2024 12:5 1 PM CDT 07/10/2024 12:55 PM CDT Harish Turner MD LAB MICROBIOLOGY - GENERAL ORDERABLES Final Result Performing Organization Address [facility] de Phone Number [facility] [address] [address] * (ABNORMAL) Urinalysis, microscopic only (07/10/2024 12:51 PM CDT) WBC, ur 0-5 0 - 5 /HPF RBC, ur 0-2 0 - 2 /HPF [facility] Epithelial cells, squamous, ur 1-5 0 - 5 /HPF [facility] Bacteria, ur 1+(A) [facility] Mucous, ur Present(A) [facility] Culture Reflex Comment Reflex conditions for urine culture (WBC >10) not met. [facility] Urine 07/10/2024 12:5 1 PM CDT 07/10/2024 12:55 PM CDT Harish Turner MD LAB URINE ORDERABLES Final Result [facility] [address] [facility] Department [place] [address] * POCT hCG, urine (07/10/2024 12:50 PM CDT) Pathologist [facility] HCG, ur, POC Negative Negative Lot Number [id number] QC Backgroud Clear Acceptable QC Control Line Acceptable Urine 07/10/2024 12:5 0 PM CDT Harish Turner MD POINT OF CARE TEST ORDERAB LES Final Result * eGFR (07/10/2024 12:39 PM CDT) Pathologist [facility] eGFR >90 >=60 mL/min/1. 73 m2 Comment: [...] BLOOD ORDERABLES Final Result Performing Organization Address [facility] Co de Phone Number [address] [address] * Magnesium (07/10/2024 12:39 PM CDT) [facility] Magnesium 1.9 1.4 - 2.5 mg/dL Blood 07/10/2024 12:3 9 PM CDT 07/10/2024 12:42 PM CDT Hairsh Turner MD LAB BLOOD ORDERABLES Final Result Performing Organization Address [facility] de Phone Number [address] [address] * Lipase (07/10/2024 12:39 PM CDT) [facility] Lipase 31 10 - 99 Units/L Comment:Hemolyzed; result mi ght be falsely decreased Blood Venous blood specimen / Unknown 07/10/2024 12:39 PM CDT 07/10/2024 12:42 PM CDT Harish Turner MD LAB BLOOD ORDERABLES Final Result Performing Organization Address [facility] de Phone Number [address] [address] * (ABNORMAL) Comprehensive metabolic panel (07/10/2024 12:39 PM CDT) [facility] Sodium 137 135 - 145 mmol/L Potassium, pl 4.5 3.3 - 4.9 mmol/L [facility] Comment:Hemolyzed; Potassium value may be falsely elevated by as much as 1.0 mmol/L. Suggest redraw and reanalysis. Chloride 106 97 - 110 mmol/L [facility] CO2 17(L) 22 - 32 mmol/L [facility] Anion gap 14 2 - 15 mmol/L [facility] BUN 13 6 - 25 mg/dL [facility] Creatinine 0.59(L) 0.60 - 1.10 mg/dL [facility] Glucose 134 70 - 199 mg/dL [facility] Comment: Interpretive Data Fasting glucose >/= [...] 2022. Calcium 8.0(L) 8.5 - 10.3 mg/dL [facility] Bilirubin, total 0.6 0.1 - 1.2 mg/dL [facility] Protein, pl 7.4 6.5 - 8.5 g/dL [facility] Albumin 4.0 3.5 - 5.0 g/dL [facility] Alk phos 69 40 - 130 Units/L [facility] ALT See Comment 7 45 [facility] Comment:Credited; Hemolyzed Specimen AST See Comment 10 45 [facility] Comment:Credited; Hemolyzed Specimen Blood 07/10/2024 12:3 9 PM CDT 07/10/2024 12:42 PM CDT us Harish Turner MD LAB BLOOD ORDERABLES Final Result [facility] [address] [facility] Department of Laboratories [place], [place] [id number] * ECG 12 lead (07/10/2024 12:03 PM CDT) Pathologist [facility] Ventricular Rate EKG/Min 91 BPM [facility] Atrial Rate 91 BPM [facility] TN-Interval (MSEC) 124 ms [facility] QRS-Interval (MSEC) 80 ms [facility] QT-Interval (MSEC) 420 ms [facility] QTc 516 ms [facility] P [place] 49 degrees [facility] R [place] 52 degrees [facility] T [place] 27 degrees [facility] Diagnosis Normal sinus rhythm Prolonged QT T-wave changes No previous ECGs available Confirmed by SULTAN MIJARES M.D. ([id number]) on 07/12/2024 4:18:46 PM [facility] 07/10/2024 12:0 3 PM CDT 07/12/2024 4:18 PM CDT us Harish Turner MD ECG ORDERABLES Final Resu lt [facility] [place] from Last 3 Months Insurance [facility] Advance Directives For more information, please contact: [phone] * Full Code (Latest Code Status on File) Date Activated Date Inactivated Comments 02/17/2023 9:59 AM 02/20/2023 7:42 PM Care Teams Head Teacher Relationship Specialty Start Date End Date Roxann Boyd NP [address] [address] PCP - General Family Medicine 02/18/24
[2024-08-09 03:59] VITALS: BP 127/62; PULSE 88; RESP 15; O2SAT 99
--- OUTSIDE RECORDS SUMMARY | 2024-08-09 04:37 | XMS_ITS | Clinical Summary ---
Author Organization [facility] Address [address] [place] [address] Phone Care Team Providers Care Television Actor Name Role Phone Roxann Boyd APRN, FIELD CANE SCALE CLERK Primary Care Provider Vicky Jacobs APRN, STACY [...] Description 07/13/2024 3:00 PM CDT Office Visit [facility] Gastroenterology [facility] [address] [place] [address] Vicky Jacobs APRN, STACY Chronic hepatitis C without hepatic coma (HCC) (Primary Dx); History of illicit drug use Discharge Disposition: Discharged to home or Selfcare 07/13/2024 Travel 06/28/2024 Telephone [facility] G[facility]enterology [facility] [address] [place] [address] Vicky Jacobs APRN, CNP 06/25/2024 Telephone [facility] Gastroenterology [facility] [address] [place] [phone] Vicky Jacobs APRN, CNP 06/07/2024 Results Follow-Up [facility] Gastroenterology [facility] [address] [place] [address] Vicky Jacobs APRN, STACY HEPATIC FUNCTION PANEL 06/03/2024 Travel 05/11/2024 Refill [facility] Gastroenterology [facility] [address] [place] [address] Vicky Jacobs, HEALTH CENTER ASSOCIATE, FIELD CANE SCALE CLERK Medication Refill from Last 3 Months Immunizations [...] HEPATITIS C ANTIBODY Routine 01/24/2024 9:23 AM SLIP MAKER Hep C w/o coma, chronic (HCC) from Last 3 Months or Most Recently Relevant to Health Maintenance Results * HEPATIC FUNCTION PANEL (06/03/2024 1:29 PM CDT) T BILI 0.2 0.2 - 1.2 mg/dL 06/03/2024 2:49 PM CDT [facility] BILIRUBIN,DIRECT 0.1 0.0 - 0.5 mg/dL 06/03/2024 2:49 PM CDT [facility] ALKALINE PHOSPHATASE 89 40 - 150 U/L 06/03/2024 2:49 PM CDT [facility] SGOT (AST) 25 <43 U/L 06/03/2024 2:49 PM CDT [facility] SGPT (ALT) 15 <56 U/L 06/03/2024 2:49 PM CDT [facility] TOTAL PROTEIN 7.5 6.0 - 8.0 g/dL 06/03/2024 2:49 PM CDT [facility] ALBUMIN 3.9 3.5 - 5.0 g/dL 06/03/2024 2:49 PM CDT [facility] Blood Venipuncture / Unknown 06/03/2024 1:29 PM CDT 06/03/2024 1:48 PM CDT us Vicky Jacobs HEALTH CENTER ASSOCIATE, FIELD CANE SCALE CLERK CHEMISTRY ORDERAB LES Final Result [facility] [address] [facility] [place] [address] * (ABNORMAL) HEPATITIS C ANTIBODY (01/24/2024 9:23 AM SLIP MAKER) hepatitis C antibody 15.90(H) <1 S/CO 01/24/2024 11:30 PM SLIP MAKER [facility] Comment: Signal/Cutoff ratio < 0.79 is Nondetected Signal/Cutoff ratio 0.80-0.99 is Grayzone Signal/Cutoff ratio > 0.99 is Detected Supplemental assays are recommended if signal/cutoff ratio is >/=1.00. Signal/cutoff ratio result >/= 5.00 is 97% predictive of positivity for recombinant immunoblot assay (RIBA) and will be reported to the [place] [facility] Public [facility] as required. Result faxed to the [facility] Blood Venipuncture / Unknown 01/24/2024 9:23 AM SLIP MAKER 01/24/2024 10:40 AM SLIP MAKER Vicky Jacobs HEALTH CENTER ASSOCIATE, FIELD CANE SCALE CLERK CHEMISTRY ORDERAB LES Final Result [facility] [address] [place] [address], from Last 3 Months or Most Recently Relevant to Health Maintenance Insurance MEDICA[employer] Care Teams Television Actor Relationship Specialty Start Date End Date Roxann Boyd APRN, CNP [address] [place] [address] PCP - General Advanced Practice Nurse 12/15/23 Vicky Jacobs APRN, CNP [address] [place] [address] Nurse Practitioner Advanced Practice Nurse 01/27/24
--- OUTSIDE RECORDS SUMMARY | 2024-08-09 04:37 | XMS_ITS | Encounter Summary ---
Author Organization [facility] Address [address] [place] [address] Phone Care Team Providers Care Home Appraiser Name Role Phone Oliver Roxann Shi APRN, INDUSTRIAL ANALYST Primary Care Provider Vicky Jacobs APRN, INDUSTRIAL ANALYST Unavailable Reason for Visit * Reason Comments Medication Refill Encounter Details Date Type Department Care Team (Late st Contact Info) Description 05/11/2024 Refill [facility] - Gastroenterology - [place] [address] [place] [phone] Vicky Jacobs APRN, INDUSTRIAL ANALYST [address] [place] [address] Medication Refill Social History Tobacco Use Types [...] Salome Hull RN - 05/12/2024 8:54 AM FLIGHT HOSTESS Mavyret order placed on 01/29/2024. Per chart review, telephone encounter for 03/05/2024, patient started Mavyret on 03/26/2024. Per chart review, Mavyret was dispensed on 03/23/2024 and 04/26/2024 by [facility]. Spoke with patient, she has a few boxes left. She has had the flu and has not been able to get in to do the HFP. Advised patient to call to make an appt when she is finished with treatment. She reported she is feeling better and will get lab done soon. Mavyret order pended, ok to refuse med refill?? HT HOSTESS documented in this encounter Plan of Treatment Not on file documented as of this encounter Visit Diagnoses Diagnosis Hep C w/o coma, chronic (HCC) Chronic hepatitis C without mention of hepatic coma documented in this encounter Care Teams Home Appraiser Relationship Specialty Start Date End Date Roxann Boyd APRN, INDUSTRIAL ANALYST [address] [place] [address] PCP - General Advanced Practice Nurse 12/15/23 Vicky Jacobs APRN, INDUSTRIAL ANALYST [address] [place] [address] Nurse Practitioner Advanced Practice Nurse 01/27/24 documented as of this encounter
--- OUTSIDE RECORDS SUMMARY | 2024-08-09 04:37 | XMS_ITS | Clinical Summary ---
Author Organization [facility] at the [facility] Address [address] [place] [address] Care Team Providers Care Linen Room Houseperson Name Role Phone Roxann Boyd NP Primary Care Provider [phone] Allergies No known active allergies Medications rosuvastatin [...] CDT - 07/10/2024 8:23 PM CDT Emergency [address] [address] Harish Turner MD Epigastric pain (Primary Dx); [...] Tobacco: Every Day Cigarettes Smokeless Tobacco: Never [facility] Utilities Answer Date Recorded In the past 12 months has th e electric, gas, oil, or water [facility] threatened to shut off services in your [...] week 02/18/2023 How often do you attend [facility] or yazidism services? Never 02/18/2023 Do you belong to any clubs o r organizations such as pentecostal groups, unions, fraternal or athletic groups, or [...] place to sleep or slept in a fci (including now)? Yes 02/18/2023 Personal Safety Answer Date Recorded Have you ever been in or are you currently in a harmful physical or emotional relationship or is someone making you feel afraid or unsafe? Denies 07/10/2024 Comments Unknown Sex and Gender Information Value Date Recorded Sex Assigned at Not on file Legal Sex Female 7:07 PM RETAIL CUSTODIAL ASSOCIATE Gender Identity Not on file Sexual Orientation [...] 94.3 kg (208 lb) 02/17/2023 12:42 PM RETAIL CUSTODIAL ASSOCIATE Height 167.6 cm (5' 6) 07/10/2024 11:21 AM CDT Body Mass Index 32.58 02/17/2023 3:47 AM RETAIL CUSTODIAL ASSOCIATE Plan of Treatment Health Maintenance Due Date [...] Nicanor Burdick M.D. KT T: Report ID: [id number] Reading Location: [id number] Procedure Note Nicanor Burdick MD - 07/10/2024 [...] Nicanor Burdick M.D. KT T: Report ID: [id number] Reading Location: [place] [address] Harish Turner MD IMG CT PROCEDURES Final [...] Screen Positive, presumptive (A) CutOff 50 ng/mL [facility] Comment: Interpretive Data - Cannabinoids: Samples containing greater than 50 ng/mL delta-9 THC -COOH or other cross- reacting compounds are reported as positive. False positive and false negative results are possible. Confirmatory testing required for definitive results. Current Interpretive Data was last reviewed 2022. Cocaine, ur Not Detected CutOff 150ng/mL [facility] Comment: Interpretive Data - Cocaine: Samples containing greater than 150 ng/mL benzoylecgonine or other cross- reacting compounds are reported as positive. False positive and false negative results are possible. Confirmatory testing required for definitive results. Current Interpretive Data was last reviewed 2022. Fentanyl, Ur Screen Positive, presumptive (A) CutOff 5 ng/mL [facility] Comment: Interpretive Data - Fentanyl: Samples containing greater than 5 ng/mL norfentanyl, fentanyl, or other cross-reacting fentanyl compounds are reported as positive. False positive and false negative results are possible. Confirmatory testing required for definitive results. Current Interpretive Data was last reviewed 2023. Methadone, ur Screen Positive, presumptive (A) CutOff 300ng/mL [facility] Comment: Interpretive Data - Methadone: Samples containing greater than 300 ng/mL d,l-methadone or other cross-reacting compounds are reported as positive. False positive and false negative results are possible. Confirmatory testing required for definitive results. Current Interpretive Data was last reviewed 2022. Opiates, ur Not Detected CutOff 300ng/mL [facility] Comment: Interpretive Data - Opiates: Samples containing greater than 300 ng/mL morphine or other cross-reacting compounds are reported as positive. False positive and false negative results are possible. Confirmatory testing required for definitive results. Current Interpretive Data was last reviewed 2022. Oxycodone, ur Not Detected CutOff 100ng/mL [facility] Comment: Interpretive Data - Oxycodone: Samples [...] URINE ORDERABLES Final Result Performing Organization Address [facility] Co de Phone Number [address] [place] [address] * (ABNORMAL) Troponin T high-sensitivity [...] BLOOD ORDERABLES Final Result Performing Organization Address City/[facility]/ZIP Co de Phone Number [facility] [address] [facility] [place] [address] * Sepsis Lactate w/ Reflex (07/10/2024 3:23 PM CDT) [facility] Sepsis Lactate 1.0 0.7 - 2.0 mmol/L Blood 07/10/2024 3:23 PM CDT 07/10/2024 3:26 PM CDT Harish Turner MD LAB BLOOD ORDERABLES Final Result Performing Organization Address [facility] de Phone Number [facility] [address] [address] * (ABNORMAL) Troponin T high-sensitivity series (baseline, 2hr, 4hr, 6hr) (07/10/2024 1:49 PM CDT) [facility] Trop T hs 38(H) <=14 ng/L Comment: Interpretive Data For further hscTnT resources including the diagnostic algorithm and an aid in interpretation, copy and paste this link: https://nrl.testcatalog.org/show/hsTrop Current Interpretive Data last revised 2020. Blood 07/10/2024 1:49 PM CDT 07/10/2024 1:51 PM CDT Harish Turner MD LAB BLOOD ORDERABLES Final Result Performing Organization Address [facility] de Phone Number [address] [address] * (ABNORMAL) Phosphorus (07/10/2024 1:49 PM CDT) [facility] Phosphorus, pl 1.3(C) 2.3 - 4.5 mg/dL Comment:Critical Result call ed to and read back by Juan [email or web address], DATE: 2024-07-10 15:30:27 BY: [email or web address] Blood 07/10/2024 1:49 PM CDT 07/10/2024 1:51 PM CDT Harish Turner MD LAB BLOOD ORDERABLES Final Result Performing Organization Address [facility] Co de Phone Number [address] [address] * Ethanol (07/10/2024 1:49 PM CDT) [facility] Ethanol <10 <=10 mg/dL Comment: Interpretive Data Legal limit of intoxication > or = 80 mg/dL Levels > or = 400 mg/dL are potentially TOXIC. Current interpretive data was last revised on 2018. Blood 07/10/2024 1:49 PM CDT 07/10/2024 1:51 PM CDT Harish Turner MD LAB BLOOD ORDERABLES Final Result Performing Organization Address [facility] de Phone Number [address] [address] * Differential, auto (07/10/2024 1:07 PM CDT) [facility] Neutrophil abs 5.98 1.50 - 6.50 K/cumm Imm gran abs 0.03 0.00 - 0.10 K/cumm [facility] Lymphocyte abs 1.62 0.80 - 3.30 K/cumm [facility] Monocyte abs 0.75 0.20 - 0.80 K/cumm [facility] Eosinophil abs 0.00 0.00 - 0.50 K/cumm [facility] Basophil abs 0.02 0.00 - 0.10 K/cumm [facility] Neutrophil pct 71.2 % [facility] Comment: Interpretive Data Percent cell count reference ranges are not reported, since discordance with absolute values may lead to misinterpretation of CBC data. Current Interpretive Data was last revised on 2017. Imm gran pct 0.4 % [facility] Comment: Interpretive Data Percent cell count reference ranges are not reported, since discordance with absolute values may lead to misinterpretation of CBC data. Current Interpretive Data was last revised on 2017. Lymphocyte pct 19.3 % [facility] Comment: Interpretive Data Percent cell count reference ranges are not reported, since discordance with absolute values may lead to misinterpretation of CBC data. Current Interpretive Data was last revised on 2017. Monocyte pct 8.9 % [facility] Comment: Interpretive Data Percent cell count reference ranges are not reported, since discordance with absolute values may lead to misinterpretation of CBC data. Current Interpretive Data was last revised on 2017. Eosinophil pct 0.0 % [facility] Comment: Interpretive Data Percent cell count reference ranges are not reported, since discordance with absolute values may lead to misinterpretation of CBC data. Current Interpretive Data was last revised on 2017. Basophil pct 0.2 % [facility] Comment: Interpretive Data Percent cell count reference ranges are not reported, since discordance with absolute values may lead to misinterpretation of CBC data. Current Interpretive Data was last revised on 2017. Blood 07/10/2024 1:07 PM CDT 07/10/2024 1:22 PM CDT Harish Turner MD LAB BLOOD ORDERABLES Final Result [place] [id number] [facility] Department of Laboratories [place], [place] [id number] * (ABNORMAL) CBC with auto differential (07/10/2024 1:07 PM CDT) WBC 8.40 3.80 - 9.90 K/cumm Hgb 12.8 11.9 - 15.5 g/dL [facility] Hct 38.1 35.6 - 45.5 % [facility] Plt 207 150 - 400 K/cumm [facility] MPV 11.8 9.1 - 12.3 fL [facility] RBC 4.10 3.90 - 5.20 M/cumm [facility] MCV 92.9 81.3 - 96.4 fL [facility] MCH 31.2 27.1 - 33.3 pg [facility] MCHC 33.6 32.3 - 35.7 g/dL [facility] RDW CV 15.4(H) 11.1 - 14.9 % [facility] RDW SD 52.2(H) 35.7 - 48.1 fL [facility] NRBC abs 0.00 0.00 - 0.01 K/cumm [facility] Blood 07/10/2024 1:07 PM CDT 07/10/2024 1:22 PM CDT Harish Turner MD LAB BLOOD ORDERABLES Final Result Performing Organization Address [facility] de Phone Number BARBIE [address] [address] * (ABNORMAL) Urinalysis reflex to microscopic and culture Urine (07/10/2024 12:51 PM CDT) Color, ur Yellow Yellow Clarity, ur Clear Clear [facility] Specific gravity, ur 1.025 1.003 - 1.030 [facility] pH, urine 6.0 [facility] Comment: Interpretive Data U rine pH is affected by diet, medications, systemic acid-base disturbances, and renal tubular function. pH may affect urinary stone formation. For example, urine pH below 6.0 may help reduce the tendency for calcium phosphate stones and pH greater than 6.0 may reduce the tendency for uric acid stone formation. Source: [facility] Current Interpretive Data was last revised on 2017 Protein, ur ql Negative Negative [facility] Glucose, ur ql Negative Negative [facility] Ketones, ur 1+(A) Negative [facility] Bilirubin, ur Negative Negative [facility] Blood, ur Negative Negative [facility] Urobilinogen, ur <2.0 <2.0 mg/dL [facility] Nitrite, ur Negative Negative [facility] Leukocyte esterase, ur 1+(A) Negative [facility] UA reflex comment Reflex to microscopic UA will be performed. [facility] Urine 07/10/2024 12:5 1 PM CDT 07/10/2024 12:55 PM CDT Harish Turner MD LAB MICROBIOLOGY - GENERAL ORDERABLES Final Result Performing Organization Address [facility] de Phone Number BARBIE [address] [address] * (ABNORMAL) Urinalysis, microscopic only (07/10/2024 12:51 PM CDT) WBC, ur 0-5 0 - 5 /HPF RBC, ur 0-2 0 - 2 /HPF [facility] Epithelial cells, squamous, ur 1-5 0 - 5 /HPF [facility] Bacteria, ur 1+(A) [facility] Mucous, ur Present(A) [facility] Culture Reflex Comment Reflex conditions for urine culture (WBC >10) not met. [facility] Urine 07/10/2024 12:5 1 PM CDT 07/10/2024 12:55 PM CDT Harish Turner MD LAB URINE ORDERABLES Final Result [facility] [address] [facility] Department [place] [address] * POCT hCG, urine (07/10/2024 12:50 PM CDT) Pathologist [facility] HCG, ur, POC Negative Negative Lot Number [id number] QC Backgroud Clear Acceptable QC Control Line Acceptable Urine 07/10/2024 12:5 0 PM CDT Harish Turner MD POINT OF CARE TEST ORDERAB LES Final Result * eGFR (07/10/2024 12:39 PM CDT) Pathologist [facility] eGFR >90 >=60 mL/min/1. 73 m2 Comment: [...] BLOOD ORDERABLES Final Result Performing Organization Address [facility] Co de Phone Number [address] [address] * Magnesium (07/10/2024 12:39 PM CDT) [facility] Magnesium 1.9 1.4 - 2.5 mg/dL Blood 07/10/2024 12:3 9 PM CDT 07/10/2024 12:42 PM CDT Harish Turner MD LAB BLOOD ORDERABLES Final Result Performing Organization Address [facility] de Phone Number [address] [address] * Lipase (07/10/2024 12:39 PM CDT) [facility] Lipase 31 10 - 99 Units/L Comment:Hemolyzed; result mi ght be falsely decreased Blood Venous blood specimen / Unknown 07/10/2024 12:39 PM CDT 07/10/2024 12:42 PM CDT Harish Turner MD LAB BLOOD ORDERABLES Final Result Performing Organization Address [facility] de Phone Number [address] [address] * (ABNORMAL) Comprehensive metabolic panel (07/10/2024 12:39 PM CDT) [facility] Sodium 137 135 - 145 mmol/L Potassium, pl 4.5 3.3 - 4.9 mmol/L [facility] Comment:Hemolyzed; Potassium value may be falsely elevated by as much as 1.0 mmol/L. Suggest redraw and reanalysis. Chloride 106 97 - 110 mmol/L [facility] CO2 17(L) 22 - 32 mmol/L [facility] Anion gap 14 2 - 15 mmol/L [facility] BUN 13 6 - 25 mg/dL [facility] Creatinine 0.59(L) 0.60 - 1.10 mg/dL [facility] Glucose 134 70 - 199 mg/dL [facility] Comment: Interpretive Data Fasting glucose >/= [...] 2022. Calcium 8.0(L) 8.5 - 10.3 mg/dL [facility] Bilirubin, total 0.6 0.1 - 1.2 mg/dL [facility] Protein, pl 7.4 6.5 - 8.5 g/dL [facility] Albumin 4.0 3.5 - 5.0 g/dL [facility] Alk phos 69 40 - 130 Units/L [facility] ALT See Comment 7 45 [facility] Comment:Credited; Hemolyzed Specimen AST See Comment 10 45 [facility] Comment:Credited; Hemolyzed Specimen Blood 07/10/2024 12:3 9 PM CDT 07/10/2024 12:42 PM CDT us Harish Turner MD LAB BLOOD ORDERABLES Final Result [facility] [address] [facility] Department of Laboratories [place], [place] [id number] * ECG 12 lead (07/10/2024 12:03 PM CDT) Pathologist [facility] Ventricular Rate EKG/Min 91 BPM [facility] Atrial Rate 91 BPM [facility] WA-Interval (MSEC) 124 ms [facility] QRS-Interval (MSEC) 80 ms [facility] QT-Interval (MSEC) 420 ms [facility] QTc 516 ms [facility] P Milam 49 degrees [facility] R Milam 52 degrees [facility] T Milam 27 degrees [facility] Diagnosis Normal sinus rhythm Prolonged QT T-wave changes No previous ECGs available Confirmed by SULTAN MIJARES M.D. ([id number]) on 07/12/2024 4:18:46 PM [facility] 07/10/2024 12:0 3 PM CDT 07/12/2024 4:18 PM CDT us Harish Turner MD ECG ORDERABLES Final Resu lt [facility] [place] from Last 3 Months Insurance [facility] Advance Directives For more information, please contact: [phone] * Full Code (Latest Code Status on File) Date Activated Date Inactivated Comments 02/17/2023 9:59 AM 02/20/2023 7:42 PM Care Teams Linen Room Houseperson Relationship Specialty Start Date End Date Roxann Boyd NP [address] [address] PCP - General Family Medicine 02/18/24
--- OUTSIDE RECORDS SUMMARY | 2024-08-09 04:37 | XMS_ITS | Referral Summary ---
Author Organization [facility] at the [facility] Address [address] [place] [address] Care Team Providers Care Consultant In Ergonomics And Safety Name Role Phone Roxann Boyd NP Primary Care Provider Encounters Date Type Department Care Team Description 07/10/2024 2:21 PM CDT - 07/10/2024 8:23 PM CDT Emergency [address] [address] Harish Turner MD Epigastric pain (Primary Dx); [...] Tobacco: Every Day Cigarettes Smokeless Tobacco: Never [facility] Utilities Answer Date Recorded In the [...] often do you attend chur ch or jainism services? Never 02/18/2023 Do you belong to any clubs o r organizations such as yazidi groups, unions, fraternal or athletic groups, or [...] on file Legal Sex Female 7:07 PM COLLIERY CLERK Gender Identity Not on file Sexual Orientation [...] 94.3 kg (208 lb) 02/17/2023 12:42 PM COLLIERY CLERK Height 167.6 cm (5' 6) 07/10/2024 11:21 AM CDT Body Mass Index 32.58 02/17/2023 3:47 AM COLLIERY CLERK Plan of Treatment Not on file Procedures [...] Nicanor Burdick M.D. KT T: Report ID: [id number] Reading Location: [place] [address] Procedure Note Nicanor Burdick MD - 07/10/2024 [...] Nicanor Burdick M.D. KT T: Report ID: [id number] Reading Location: [place] [address] us Harish Turner MD IMG CT PROCEDURES [...] 2022. Barbiturates, ur Not Detected CutOff 200ng/mL [facility] Comment: Interpretive Data - Barbiturates: Samples containing greater than 200 ng/mL secobarbital or other cross-reacting barbiturate compounds are reported as positive. False positive and false negative results are possible. Confirmatory testing required for definitive results. Current Interpretive Data was last reviewed 2022. Benzodiazepines, ur Screen Positive, presumptive (A) CutOff 100ng/mL [facility] Comment: Interpretive Data - Benzodiazepines: Samples containing greater than 100 ng/mL nordiazepam or other cross-reacting compounds are reported as positive. False positive and false negative results are possible. Confirmatory testing required for definitive results. Current Interpretive Data was last reviewed 2022. Cannabinoids, ur Screen Positive, presumptive (A) CutOff 50 ng/mL [facility] Comment: Interpretive Data - Cannabinoids: Samples containing greater than 50 ng/mL delta-9 THC -COOH or other cross- reacting compounds are reported as positive. False positive and false negative results are possible. Confirmatory testing required for definitive results. Current Interpretive Data was last reviewed 2022. Cocaine, ur Not Detected CutOff 150ng/mL [facility] Comment: Interpretive Data - Cocaine: Samples containing greater than 150 ng/mL benzoylecgonine or other cross- reacting compounds are reported as positive. False positive and false negative results are possible. Confirmatory testing required for definitive results. Current Interpretive Data was last reviewed 2022. Fentanyl, Ur Screen Positive, presumptive (A) CutOff 5 ng/mL [facility] Comment: Interpretive Data - Fentanyl: Samples containing [...] URINE ORDERABLES Final Result Performing Organization Address [facility] de Phone Number [address] [address] * (ABNORMAL) Troponin T high-sensitivity 2-hour (07/10/2024 3:23 PM CDT) Pathologist [facility] Trop T hs 38(H) <=14 ng/L Comment: Interpretive Data For further hscTnT resources including the diagnostic algorithm and an aid in interpretation, copy and paste this link: https://nrl.testcatalog.org/show/hsTrop Current Interpretive Data last revised 2020. Trop T hs delta 0 ng/L [facility] Trop T hs interp Insignificant [facility] Blood 07/10/2024 3:23 PM CDT 07/10/2024 3:26 PM CDT Nicanor Mason DO LAB BLOOD ORDERABLES Final Result Performing Organization Address [facility] Co de Phone Number [address] [address] * Sepsis Lactate w/ Reflex (07/10/2024 3:23 PM CDT) [facility] Sepsis Lactate 1.0 0.7 - 2.0 mmol/L Blood 07/10/2024 3:23 PM CDT 07/10/2024 3:26 PM CDT Harish Turner MD LAB BLOOD ORDERABLES Final Result Performing Organization Address [facility] Co de Phone Number [address] [place] [address] * (ABNORMAL) Troponin T high-sensitivity series (baseline, 2hr, 4hr, 6hr) (07/10/2024 1:49 PM CDT) Pathologist [facility] Trop T hs 38(H) <=14 ng/L Comment: Interpretive Data For further hscTnT resources including the diagnostic algorithm and an aid in interpretation, copy and paste this link: https://nrl.testcatalog.org/show/hsTrop Current Interpretive Data last revised 2020. Blood 07/10/2024 1:49 PM CDT 07/10/2024 1:51 PM CDT Harish Turner MD LAB BLOOD ORDERABLES Final Result Performing Organization Address [facility]/ZIP Co de Phone Number [facility]BI[facility] [address] [place] [address] * (ABNORMAL) Phosphorus (07/10/2024 1:49 PM CDT) Phosphorus, pl 1.3(C) 2.3 - 4.5 mg/dL Comment:Critical Result call ed to and read back by Juan [email or web address], DATE: 2024-07-10 15:30:27 BY: [email or web address] Blood 07/10/2024 1:49 PM CDT 07/10/2024 1:51 PM CDT Harish Turner MD LAB BLOOD ORDERABLES Final Result Performing Organization Address [facility] Co de Phone Number [address] [place] [address] * Ethanol (07/10/2024 1:49 PM CDT) Ethanol <10 <=10 mg/dL Comment: Interpretive Data Legal limit of intoxication > or = 80 mg/dL Levels > or = 400 mg/dL are potentially TOXIC. Current interpretive data was last revised on 2018. Blood 07/10/2024 1:49 PM CDT 07/10/2024 1:51 PM CDT Harish Turner MD LAB BLOOD ORDERABLES Final Result Performing Organization Address [facility]/ZIP Co de Phone Number [address] [place] [address] * Differential, auto (07/10/2024 1:07 PM CDT) Pathologist [facility] Neutrophil abs 5.98 1.50 - 6.50 K/cumm Imm gran abs 0.03 0.00 - 0.10 K/cumm [facility] Lymphocyte abs 1.62 0.80 - 3.30 K/cumm [facility] Monocyte abs 0.75 0.20 - 0.80 K/cumm [facility] Eosinophil abs 0.00 0.00 - 0.50 K/cumm [facility] Basophil abs 0.02 0.00 - 0.10 K/cumm [facility] Neutrophil pct 71.2 % [facility] Comment: Interpretive Data Percent cell count reference ranges are not reported, since discordance with absolute values may lead to misinterpretation of CBC data. Current Interpretive Data was last revised on 2017. Imm gran pct 0.4 % [facility] Comment: Interpretive Data Percent cell count reference ranges are not reported, since discordance with absolute values may lead to misinterpretation of CBC data. Current Interpretive Data was last revised on 2017. Lymphocyte pct 19.3 % [facility] Comment: Interpretive Data Percent cell count reference ranges are not reported, since discordance with absolute values may lead to misinterpretation of CBC data. Current Interpretive Data was last revised on 2017. Monocyte pct 8.9 % [facility] Comment: Interpretive Data Percent cell count reference ranges are not reported, since discordance with absolute values may lead to misinterpretation of CBC data. Current Interpretive Data was last revised on 2017. Eosinophil pct 0.0 % [facility] Comment: Interpretive Data Percent cell count reference ranges are not reported, since discordance with absolute values may lead to misinterpretation of CBC data. Current Interpretive Data was last revised on 2017. Basophil pct 0.2 % [facility] Comment: Interpretive Data Percent cell count reference ranges are not reported, since discordance with absolute values may lead to misinterpretation of CBC data. Current Interpretive Data was last revised on 2017. Blood 07/10/2024 1:07 PM CDT 07/10/2024 1:22 PM CDT Harish Turner MD LAB BLOOD ORDERABLES Final Result Performing Organization Address [facility] de Phone Number [facility] [address] [place] [address] * (ABNORMAL) CBC with auto differential (07/10/2024 1:07 PM CDT) Pathologist [facility] WBC 8.40 3.80 - 9.90 K/cumm Hgb 12.8 11.9 - 15.5 g/dL [facility] Hct 38.1 35.6 - 45.5 % [facility] Plt 207 150 - 400 K/cumm [facility] MPV 11.8 9.1 - 12.3 fL [facility] RBC 4.10 3.90 - 5.20 M/cumm [facility] MCV 92.9 81.3 - 96.4 fL [facility] MCH 31.2 27.1 - 33.3 pg [facility] MCHC 33.6 32.3 - 35.7 g/dL [facility] RDW CV 15.4(H) 11.1 - 14.9 % [facility] RDW SD 52.2(H) 35.7 - 48.1 fL [facility] NRBC abs 0.00 0.00 - 0.01 K/cumm [facility] Blood 07/10/2024 1:07 PM CDT 07/10/2024 1:22 PM CDT Harish Turner MD LAB BLOOD ORDERABLES Final Result Performing Organization Address [facility] de Phone Number [place] [id number] [place] [address] * (ABNORMAL) Urinalysis reflex to microscopic and culture Urine (07/10/2024 12:51 PM CDT) Color, ur Yellow Yellow Clarity, ur Clear Clear [facility] Specific gravity, ur 1.025 1.003 - 1.030 [facility] pH, urine 6.0 [facility] Comment: Interpretive Data U rine pH is affected by diet, medications, systemic acid-base disturbances, and renal tubular function. pH may affect urinary stone formation. For example, urine pH below 6.0 may help reduce the tendency for calcium phosphate stones and pH greater than 6.0 may reduce the tendency for uric acid stone formation. Source: [facility] Current Interpretive Data was last revised on 2017 Protein, ur ql Negative Negative [facility] Glucose, ur ql Negative Negative [facility] Ketones, ur 1+(A) Negative [facility] Bilirubin, ur Negative Negative [facility] Blood, ur Negative Negative [facility] Urobilinogen, ur <2.0 <2.0 mg/dL [facility] Nitrite, ur Negative Negative [facility] Leukocyte esterase, ur 1+(A) Negative [facility] UA reflex comment Reflex to microscopic UA will be performed. [facility] Urine 07/10/2024 12:5 1 PM CDT 07/10/2024 12:55 PM CDT Harish Turner MD LAB MICROBIOLOGY - GENERAL ORDERABLES Final Result Performing Organization Address [facility] Co de Phone Number [address] [employer] [place] [address] * (ABNORMAL) Urinalysis, microscopic only (07/10/2024 12:51 PM CDT) WBC, ur 0-5 0 - 5 /HPF RBC, ur 0-2 0 - 2 /HPF [facility] Epithelial cells, squamous, ur 1-5 0 - 5 /HPF [facility] Bacteria, ur 1+(A) [facility] Mucous, ur Present(A) [facility] Culture Reflex Comment Reflex conditions for urine culture (WBC >10) not met. [facility] Urine 07/10/2024 12:5 1 PM CDT 07/10/2024 12:55 PM CDT Harish Turner MD LAB URINE ORDERABLES Final Result Performing Organization Address [facility] Co de Phone Number [address] [place] [address] * POCT hCG, urine (07/10/2024 12:50 PM [...] Turner MD LAB BLOOD ORDERABLES Final Result [place]FKN DQ [id number] [facility] Department of Laboratories [place], [place] [id number] * Magnesium (07/10/2024 12:39 PM CDT) Magnesium 1.9 1.4 - 2.5 mg/dL Blood 07/10/2024 12:3 9 PM CDT 07/10/2024 12:42 PM CDT us Harish Turner MD LAB BLOOD ORDERABLES Final Result Performing Organization Address [facility] Co de Phone Number BARBI[facility] [address] [address] * Lipase (07/10/2024 12:39 PM CDT) [facility] Lipase 31 10 - 99 Units/L Comment:Hemolyzed; result mi ght be falsely decreased Blood Venous blood specimen / Unknown 07/10/2024 12:39 PM CDT 07/10/2024 12:42 PM CDT Harish Turner MD LAB BLOOD ORDERABLES Final Result Performing Organization Address [facility] de Phone Number BARBIE [address] [address] * (ABNORMAL) Comprehensive metabolic panel (07/10/2024 12:39 PM CDT) [facility] Sodium 137 135 - 145 mmol/L Potassium, pl 4.5 3.3 - 4.9 mmol/L [facility] Comment:Hemolyzed; Potassium value may be falsely elevated by as much as 1.0 mmol/L. Suggest redraw and reanalysis. Chloride 106 97 - 110 mmol/L [facility] CO2 17(L) 22 - 32 mmol/L [facility] Anion gap 14 2 - 15 mmol/L [facility] BUN 13 6 - 25 mg/dL [facility] Creatinine 0.59(L) 0.60 - 1.10 mg/dL [facility] Glucose 134 70 - 199 mg/dL [facility] Comment: Interpretive Data Fasting glucose >/= 126 [...] 2022. Calcium 8.0(L) 8.5 - 10.3 mg/dL [facility] Bilirubin, total 0.6 0.1 - 1.2 mg/dL [facility] Protein, pl 7.4 6.5 - 8.5 g/dL [facility] Albumin 4.0 3.5 - 5.0 g/dL [facility] Alk phos 69 40 - 130 Units/L [facility] ALT See Comment [facility] Comment:Credited; Hemolyzed Specimen AST See Comment [facility] Comment:Credited; Hemolyzed Specimen Blood 07/10/2024 12:3 9 PM CDT 07/10/2024 12:42 PM CDT us Harish Turner MD LAB BLOOD ORDERABLES Final Result Performing Organization Address [facility] de Phone Number [facility] [address] [facility] Department [place] [address] * ECG 12 lead (07/10/2024 12:03 PM CDT) Pathologist [facility] Ventricular Rate EKG/Min 91 BPM [facility] Atrial Rate 91 BPM [facility] AL-Interval (MSEC) 124 ms [facility] QRS-Interval (MSEC) 80 ms [facility] QT-Interval (MSEC) 420 ms [facility] QTc 516 ms [facility] P Erwin 49 degrees [facility] R Erwin 52 degrees [facility] T Erwin 27 degrees [facility] Diagnosis Normal sinus rhythm Prolonged QT T-wave changes No previous ECGs available Confirmed by SULTAN MIJARES M.D. ([id number]) on 07/12/2024 4:18:46 PM [facility] 07/10/2024 12:0 3 PM CDT 07/12/2024 4:18 PM CDT us Harish Turner MD ECG ORDERABLES Final Resu lt Performing Organization Address [facility] Co de Phone Number [facility] from Last 3 Months Insurance Advance Directives For more information, please contact: [phone] * Full Code (Latest Code Status on File) Date Activated Date Inactivated Comments 02/17/2023 9:59 AM 02/20/2023 7:42 PM Care Teams Consultant In Ergonomics And Safety Relationship Specialty Start Date End Date Roxann Boyd NP [address] [address] PCP - General Family Medicine 02/18/24
== END 2024-08-09 04:15 | disposition left against medical advice (07) ==
DX: L02.411 Cutaneous abscess of right axilla (principal)
CPT/HCPCS: 99199